=== PATIENT | male | born 1960 | race Caucasian/White ===

== ENCOUNTER → 2017-11-02 15:48 | Outpatient (CLI) | payer MEDICARE, MEDICAID, SELFPAY ==
[2017-11-02 17:09] LABS: Absolute Lymphocyte Count 2.42 X10^3/ul (0.83-4.51); Absolute Neutrophil Count 3.1 X10^3/uL (2.0-7.7); Basophil# 0.03 X10^3/uL; Basophil% 0.5 % (0-1); Eosinophil# 0.15 X10^3/uL; Eosinophils% 2.4 % (0-5); Hematocrit 43.3 % (40-54); Lymphocyte # 2.42 X10^3/ul (4.0); Lymphocyte % 38.8 % (19-41); Mean Corp Hgb Conc 34.6 g/gl (32-36); Mean Corpuscular Hgb 31.8 pg (27.0-32.0); Mean Corpuscular Volume 91.7 fL (80-94); Mean Platelet Vol. 10.6 fl (6.2-12.0); Monocyte# 0.53 X10^3/uL; Monocyte% 8.5 % (0-10); Neutrophil # 3.09 X10^3/uL (2.7-7.7); Neutrophil % 49.6 % (47-70); Platelet Count 219 K/mm3 (150-450); RBC Distribution Width CV 12.4 % (11.6-14.6); RBC Distribution Width SD 40.9 fl (35.1-43.9); Red Blood Count 4.72 M/mm3 (4.6-6.2); White Blood Count 6.2 K/mm3 (4.4-11.0)
[2017-11-02 17:10] LABS: POSITIVE COUNT NO; POSITIVE DIFFERENTIAL NO; POSITIVE MORPHOLOGY NO
[2017-11-02 17:15] LABS: Hemoglobin A1c 8.6 % (4.2-6.3)
[2017-11-02 17:18] LABS: ALB/GLOB Ratio 1.1 RATIO (0.9-2.4); AST(SGOT) 35 U/L (15-37); Alanine Aminotransfer ALT/SGPT 66 U/L (16-61); Albumin, Serum 4.2 g/dL (3.2-5.0); Alkaline Phosphatase 108 U/L (45-117); Anion Gap 11 (5-15); BUN 14 mg/dL (7-18); BUN/Creat Ratio 11.6 RATIO (10-20); Calcium,Total 9.6 mg/dL (8.5-10.1); Chloride 102 mmol/L (98-107); Creatinine, Serum 1.21 mg/dL (0.70-1.30); EST Glomerular Filtration Rate 65 mL/min (>60); Est Glom Filt Rate - Afr Amer 79 mL/min (>60); Globulin 3.8 g/dL (2.2-4.2); Glucose 145 mg/dL (74-106); Potassium 4.2 mmol/L (3.5-5.1); Sodium Level 138 mmol/L (136-145); Thyroid Stim Hormone (TSH) 2.49 uIU/mL (0.358-3.74)
[2017-11-02 17:39] LABS: BNP,B-Type NATRIURETIC PEPTIDE < 2.0 pg/mL (0-100)
[2017-11-02 19:38] LABS: Vitamin D,25 Hydroxy 28.5 ng/mL (29.95-100.01)
== END ==
PROVIDERS: Visit Provider Family Medicine
DX: E03.9 Hypothyroidism, unspecified (principal); E55.9 Vitamin D deficiency, unspecified; E11.9 Type 2 diabetes mellitus without complications; I10 Essential (primary) hypertension
CPT/HCPCS: 36415; 80053; 82306; 83036; 83880; 84439; 84443; 85025

== ENCOUNTER 2017-12-05 13:50 | Emergency (ER) | payer MEDICARE, MEDICAID, SELFPAY ==
[2017-12-05 13:50] VITALS: BP 196/102; PULSE 100; RESP 18; TEMP 36.5; O2SAT 96; BMI 40.7
[2017-12-05 14:33] LABS: Absolute Lymphocyte Count 1.88 X10^3/ul (0.83-4.51); Absolute Neutrophil Count 3.3 X10^3/uL (2.0-7.7); Basophil# 0.02 X10^3/uL; Basophil% 0.3 % (0-1); Eosinophil# 0.16 X10^3/uL; Eosinophils% 2.6 % (0-5); Hematocrit 41.8 % (40-54); Hemoglobin 14.3 g/dl (13.0-16.5); Lymphocyte # 1.88 X10^3/ul (4.0); Lymphocyte % 30.9 % (19-41); Mean Corp Hgb Conc 34.2 g/gl (32-36); Mean Corpuscular Hgb 31.9 pg (27.0-32.0); Mean Corpuscular Volume 93.3 fL (80-94); Mean Platelet Vol. 10.4 fl (6.2-12.0); Monocyte# 0.67 X10^3/uL; Neutrophil # 3.34 X10^3/uL (2.7-7.7); POSITIVE COUNT NO; POSITIVE DIFFERENTIAL NO; POSITIVE MORPHOLOGY NO; Platelet Count 183 K/mm3 (150-450); RBC Distribution Width CV 12.7 % (11.6-14.6); RBC Distribution Width SD 42.5 fl (35.1-43.9); Red Blood Count 4.48 M/mm3 (4.6-6.2); White Blood Count 6.1 K/mm3 (4.4-11.0)
--- NOTE | 2017-12-05 14:41 | RAD_ITS ---
STUDY: X-RAY - LEFT RADIUS AND ULNA REASON FOR EXAM: Male, 57 years old. Pain and swelling TECHNIQUE: 2 view(s) of the forearm. COMPARISON: None. FINDINGS: There is no demonstrated soft tissue swelling. Normal visualized radius. Normal visualized ulna. RAD/Forearm 2 Views IMPRESSION: Normal x-ray examination of the radius and ulna. Electronically Signed: Little Modi MD at 14:59 EDT Tel , Service support ,
[2017-12-05 14:56] LABS: Anion Gap 7 (5-15); BUN 13 mg/dL (7-18); Calcium,Total 9.2 mg/dL (8.5-10.1); Chloride 104 mmol/L (98-107); EST Glomerular Filtration Rate 60 mL/min (>60); Est Glom Filt Rate - Afr Amer 73 mL/min (>60); Estimated Creatinine Clearance 63.17 ml/min; Glucose 248 mg/dL (74-106); Potassium 4.4 mmol/L (3.5-5.1); Sodium Level 138 mmol/L (136-145)
--- NOTE | 2017-12-05 14:56 | ED.RN ---
LAB RESULTED LACTIC 2.9, PHYSICIAN NOTIFIED
[2017-12-05 14:57] LABS: Lactic Acid 2.9 mmol/L (0.4-2.0)
--- NOTE | 2017-12-05 15:44 | ED.DCSUM_ITS ---
- ER Visit Summary Date of Service: 12/05/17 Chief Complaint: Swelling to left forearm] History of Present Illness: The patient is a 57 M [emergency department with complaint of a swelling to the left forearm that he first noticed yesterday. 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 Today patient noticed increased redness and then streaking towards the elbow and down towards the wrist which concerned him so he comes in for evaluation. Patient not had any fever. Patient does state that he squeezed the lump earlier today and got small amount of purulent debris from it.] Physical Examination: [HEENT-PERRLA, EOMI. Cranial nerves II through XII grossly intact. TMs clear. Mucous membranes moist. No adenopathy. Cardiovascular-regular rate and rhythm without murmur or ectopy Lungs-clear to auscultation, chest wall stable without crepitus or subcu emphysema Abdomen-normoactive bowel sounds, soft, nontender, no rebound or rigidity, no peritoneal signs. Extremities-intact ?4, normal range of motion, normal pulses. Left forearm-mid dorsum of forearm there is a small area of soft tissue swelling measuring approximately a centimeter in diameter with some faint 3 cm of erythema. From this area there are 2 lymphangitic streaks 1 proximal towards elbow and one distal towards wrist. Patient has normal pulses. Patient has normal sensation. No significant edema to the forearm otherwise. Test Results: [X-ray of the left forearm obtained showed no foreign bodies. CBC with differential showed a normal white count of 6.1, hemoglobin 14, hematocrit 42, platelets 183. Chemistries unremarkable. Glucose was 248. Lactate was slightly elevated 2.9.] Emergency Department Course and Treatment: [Patient was medicated with with Unasyn 3 g IV.] Treatment Plan: [Discussed options for outpatient therapy versus admission for IV antibiotics. Given the patient has a normal white count is afebrile I feel he would be reasonable to start with outpatient treatment and patient actually would prefer to this plan. I do not feel patient is septic. Blood cultures were ordered and are pending. I will start patient on Bactrim and Keflex.] Disposition: [Discharged home in stable condition]. Patient advised to return if increased pain, redness, fever, or condition should worsen anyway. Patient to follow-up with primary care physician for wound check in 3-4 days. Impression: [Cellulitis left forearm with lymphangitis] This note was generated with [employer] dictation software. It may contain incorrect words, spelling, and punctuation that were not noted in review of the chart prior to signing ED Disposition - Plan for ED Patient: Chief Complaint: Cellulitis Referrals: Bernardo Mckee MD [Primary Care Provider] -
--- NOTE | 2017-12-05 15:45 | ED.DEP ---
ED Disposition - Plan for ED Patient: Chief Complaint: Cellulitis Instructions: ED Infec Skin Cellulitis Prescriptions: Cephalexin [Keflex] 500 mg PO Q6 #40 cap Smz/Tmp Ds [Bactrim Ds] 1 tab PO BID #20 tab Referrals: Bernardo Mckee MD [Primary Care Provider] - 3-5 Days
[2017-12-05 15:57] VITALS: BP 151/94; PULSE 88; RESP 16; O2SAT 97
--- NOTE | 2017-12-05 15:57 | ED.RN ---
pt given written and verbal discharge instructions and home going prescriptions. pt verbalizes understanding. pt iv d/c and covered with 2x2 gauze and paper tape. pt dresses self and ambulates out of dept with spouse.
[2017-12-05 18:24] LABS: Reflex Lactate? Y
== END 2017-12-05 15:59 | disposition home or self-care (01) ==
LOC: ED 14:26
PROVIDERS: Emergency Provider Emergency Medicine; Family Provider Family Medicine; PCP Family Medicine
DX: L03.114 Cellulitis of left upper limb (principal); I89.1 Lymphangitis; E11.9 Type 2 diabetes mellitus without complications; Z79.84 Long term (current) use of oral hypoglycemic drugs
CPT/HCPCS: 73090; 80048; 83605; 85025; 87040; 96365; 99283; J7030; J0295

== ENCOUNTER → 2018-02-04 08:48 | Outpatient (CLI) | payer MEDICARE, MEDICAID, SELFPAY ==
[2018-02-04 12:14] LABS: Absolute Lymphocyte Count 2.55 X10^3/ul (0.83-4.51); Basophil# 0.03 X10^3/uL; Basophil% 0.4 % (0-1); Eosinophil# 0.12 X10^3/uL; Eosinophils% 1.6 % (0-5); Hematocrit 44.5 % (40-54); Hemoglobin 15.1 g/dl (13.0-16.5); Lymphocyte # 2.55 X10^3/ul (4.0); Lymphocyte % 34.6 % (19-41); Mean Corp Hgb Conc 33.9 g/gl (32-36); Mean Corpuscular Hgb 32.1 pg (27.0-32.0); Mean Corpuscular Volume 94.5 fL (80-94); Mean Platelet Vol. 10.6 fl (6.2-12.0); Monocyte# 0.67 X10^3/uL; Monocyte% 9.1 % (0-10); Neutrophil # 3.98 X10^3/uL (2.7-7.7); Neutrophil % 54.2 % (47-70); Platelet Count 211 K/mm3 (150-450); RBC Distribution Width CV 12.9 % (11.6-14.6); RBC Distribution Width SD 43.3 fl (35.1-43.9); Red Blood Count 4.71 M/mm3 (4.6-6.2); White Blood Count 7.4 K/mm3 (4.4-11.0)
[2018-02-04 12:21] LABS: POSITIVE COUNT NO; POSITIVE DIFFERENTIAL NO; POSITIVE MORPHOLOGY NO
[2018-02-04 12:38] LABS: Anion Gap 7 (5-15); BUN 16 mg/dL (7-18); BUN/Creat Ratio 14.5 RATIO (10-20); Calcium,Total 9.4 mg/dL (8.5-10.1); Chloride 103 mmol/L (98-107); EST Glomerular Filtration Rate 73 mL/min (>60); Est Glom Filt Rate - Afr Amer 88 mL/min (>60); Glucose 134 mg/dL (74-106); Potassium 4.4 mmol/L (3.5-5.1); Sodium Level 138 mmol/L (136-145); T4 Free Direct 1.07 ng/dL (0.76-1.46); Thyroid Stim Hormone (TSH) 2.04 uIU/mL (0.358-3.74)
[2018-02-04 12:39] LABS: Vitamin D,25 Hydroxy 48.6 ng/mL (29.95-100.01)
--- OUTSIDE RECORDS SUMMARY | 2018-03-30 10:56 | XMS RPT_ITS ---
:1960 Author Organization OHIP Care Team Providers Name Role Phone Bernardo Mckee Attending Unavailable Bernardo Mckee Primary Care Unavailable Markell Lemon Attending Unavailable Bernardo Mckee Attending Unavailable Bernardo Mckee Primary Care Unavailable Bernardo Mckee Attending Unavailable Bernardo Mckee Referring Unavailable Bernardo Mckee Primary Care Unavailable PROBLEMS PROBLEMS DATE TYPE CONDITION / CODE ATTENDING STATUS SOURCE 02/04/2018 Unknown E55.9 - Vitamin D Bernardo Mckee Active [place] deficiency, Community unspecified / Hospital E55.9(ICD-10) Repository 02/04/2018 Unknown I10 - Essential Bernardo Mckee Active [place] (primary) Community hypertension / Hospital I10(ICD-10) Repository 02/04/2018 Unknown E11.9 - Type 2 Bernardo Mckee Active [place] diabetes mellitus [facility] without Hospital complications / Repository E11.9(ICD-10) 02/04/2018 Unknown R06.02 - Shortness Bernardo Mckee Active [place] of breath / Community R06.02(ICD-10) Hospital Repository 11/02/2017 Unknown E03.9 - Bernardo Mckee Active [place] Hypothyroidism, Community unspecified / Hospital E03.9(ICD-10) Repository PROCEDURES PROCEDURES No Procedure Records FoundRESULTS RESULTS CHEST PA AND LATERAL Observed: 02/04/2018 Status: F Source: [place] 9:11 AM [facility] REPOSITORY [facility] Imaging Services [address] [place] [address] Chest PA and Lateral MR#: [id number] Acct: [id number] Name: CHITO MACHUCA Rep #: [id number] : 1960 M 57 From: Mau Fay MD PCP: Bernardo Mckee MD Status: REG CLI Study: Chest PA and Lateral Date of Exam: 02/04/18 Exam# [id number] Ordering Dr: Bernardo Mckee MD STUDY: X-RAY CHEST REASON FOR EXAM: Male, 57 years old. Shortness of breath TECHNIQUE: PA and lateral views of the chest. COMPARISON: None. FINDINGS: The lungs are clear and expanded. There is a focus of pleural thickening of the lateral right mid hemithorax. Normal size heart. Normal mediastinum and fausto. Normal visualized pulmonary arteries. Normal visualized aortic arch and descending thoracic aorta. There are degenerative changes of the thoracic spine. There is a fusion plate overlying the lower cervical region. There is a small metallic-appearing foreign body in the soft tissues of the anterior left chest wall. RAD/Chest PA and Lateral IMPRESSION: Mild pleural thickening of the mid lateral right hemithorax. Metallic-appearing foreign body of the anterior left chest wall. Fusion plate overlying the lower cervical region. Degenerative changes of the thoracic spine. Electronically Signed: Mau Fay MD at 21:30 EST , Service support , CC: Bernardo Mckee MD Hosiery Mater: Signed CBC W/DIFF, AUTOMATED Collected: 02/04/2018 Status: F Source: [place] 8:51 AM [facility] REPOSITORY TYPE CODE TESTS RESULT OUT OF RANGE REFERENCE UNITS LAB L100.1000 4.4-11.0 K/mm3 Normal WBC 7.4 LAB L100.1200 4.6-6.2 M/mm3 Normal RBC 4.71 LAB L100.1300 13.0-16.5 g/dl Normal HGB 15.1 LAB L100.1400 40-54 % Normal HCT 44.5 LAB L100.1500 80-94 fL High MCV 94.5 LAB L100.1600 27.0-32.0 pg High MCH 32.1 LAB L100.1700 32-36 g/gl Normal MCHC 33.9 LAB L100.1810 11.6-14.6 % Normal RDW CV 12.9 LAB L100.1820 35.1-43.9 fl Normal RDW SD 43.3 LAB L100.1900 150-450 K/mm3 Normal PLT 211 LAB L100.2000 6.2-12.0 fl Normal MPV 10.6 LAB L100.2100 47-70 % Normal NEUT% 54.2 LAB L100.2200 19-41 % Normal LY% 34.6 LAB L100.2300 0-10 % Normal MONO% 9.1 LAB L100.2400 0-5 % Normal EO% 1.6 LAB L100.2500 0-1 % Normal BASO% 0.4 LAB L100.2550 0.0-0.9 % Normal IM GRAN % 0.100 Result Comment: IG% - Immature Granulocytes (promyelocytes, myelocytes and metamyelocytes) > 1% indicates that a LEFT SHIFT is Present. LAB L100.2620 2.0-7.7 X10 3/uL Normal Absolute Neut 4.0 LAB L100.2720 0.83-4.51 X10 3/ul Normal Absolute Lymph 2.55 Performed By: #### L100.0100 #### [facility] [address] [place], [address] BASIC METABOLIC Collected: 02/04/2018 Status: F Source: [place] PROFILE (BMP) 8:51 AM [facility] REPOSITORY TYPE CODE TESTS RESULT OUT OF RANGE REFERENCE UNITS LAB L501.0100 74-106 mg/dL High GLU 134 Result Comment: Fasting Glucose result greater than or equal to 126 mg/dL suggests DIABETES MELLITUS per A.D.A. criteria. Please note revised GLUCOSE reference range effective 2017. LAB L501.1000 7-18 mg/dL Normal BUN 16 LAB L501.1100 0.70-1.30 mg/dL Normal CREAT,SERUM 1.10 Result Comment: The validity of the calculated GFR AND GFRAA in patients over 70 years has not been determined. Clinical correlation is essential. LAB L501.1110 >60 mL/min Normal EST GFR 73 Result Comment: Non- GFR Calc LAB L501.1115 >60 mL/min Normal EST GFR - AA 88 Result Comment: GFR Calc LAB L501.1300 10-20 RATIO Normal BUN/CRE 14.5 LAB L501.2200 8.5-10.1 mg/dL CA Normal 9.4 LAB L501.5300 136-145 mmol/L NA Normal 138 LAB L501.5600 3.5-5.1 mmol/L K Normal 4.4 LAB L501.5900 98-107 mmol/L CL Normal 103 LAB L501.6100 21.0-32.0 mmol/L Normal CO2 28.0 LAB L501.6200 5-15 Normal GAP 7 Performed By: #### L500.2500, L501.9520, L506.0400 #### [facility] [address] [place], [address] THYROID STIM HORMONE Collected: 02/04/2018 Status: F Source: [place] (TSH) 8:51 AM [facility] REPOSITORY TYPE CODE TESTS RESULT OUT OF RANGE REFERENCE UNITS LAB L501.9520 0.358-3.74 uIU/mL Normal TSH 2.04 Performed By: #### L500.2500, L501.9520, L506.0400 #### [facility] [address] [place], [address] T4 FREE DIRECT Collected: 02/04/2018 Status: F Source: [place] 8:51 AM [facility] REPOSITORY TYPE CODE TESTS RESULT OUT OF RANGE REFERENCE UNITS LAB L506.0400 0.76-1.46 ng/dL Normal T4 FREE 1.07 DIRECT Performed By: #### L500.2500, L501.9520, L506.0400 #### [facility] [address] [place], [address] VITAMIN D,25 HYDROXY Collected: 02/04/2018 Status: F Source: [place] 8:51 AM [facility] REPOSITORY TYPE CODE TESTS RESULT OUT OF RANGE REFERENCE UNITS LAB L506.1000 29.95-100.01 ng/mL Normal Vitamin D 48.6 25-OH Result Comment: Vitamin D 25(OH) Status Range Deficiency <20 ng/mL (50nmol/L) Insuffciency 20 - 30 ng/mL (50 - 75 nmol/L) Sufficiency 30 - 100 ng/mL (75 - 250 nmol/L) Toxicity >100 ng/mL (>250 nmol/L) Performed By: #### L506.1000 #### [facility] [address] [place] [place], [address] DISCHARGE INSTRUCTION Observed: 12/05/2017 Status: F Source: [place] 3:46 PM [facility] REPOSITORY [facility] Medical Records Department [address] [place] [address] Discharge Instruction 12/05/17 1545 MR#: [id number] Acct: [id number] Name: CHITO MACHUCA Rep #: [id number] : 1960 57 From: Markell Lemon DO PCP: Bernardo Mckee MD Status: REG ER ED Disposition - Plan for ED Patient: Chief Complaint: Cellulitis Instructions: ED Infec Skin Cellulitis Prescriptions: Cephalexin [Keflex] 500 mg PO Q6 #40 cap Smz/Tmp Ds [Bactrim Ds] 1 tab PO BID #20 tab Referrals: Bernardo Mckee MD [Primary Care Provider] - 3-5 Days What to do if you have Problems For any increased pain, shortness of breath, bleeding, nausea or vomiting, chest pain, or any unexpected problems, contact your Primary Care Provider. Call [facility] ([phone]) or report to the closest Emergency Room. Call 911 if necessary. 12/05/17 1547 <Electronically signed by Markell Lemon DO> Date Markell Lemon DO Cosigner Signature (If Indicated): Date CC: Bernardo Mckee MD EMERGENCY DEPARTMENT Observed: 12/05/2017 Status: F Source: REBECCA SUMMARY 3:44 PM [facility] REPOSITORY [facility] Medical Records Department [address] [place] [address] Emergency Department Summary 12/05/17 1541 MR#: [id number] Acct: [id number] Name: CHITO MACHUCA Rep #: [id number] : 1960 57 From: Markell Lemon DO PCP: Bernardo Mckee MD Status: REG ER - ER Visit Summary Date of Service: 12/05/17 Chief Complaint: Swelling to left forearm] History of Present Illness: The patient is a 57 M [emergency department with complaint of a swelling to the left forearm that he first noticed yesterday. 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 Today patient noticed increased redness and then streaking towards the elbow and down towards the wrist which concerned him so he comes in for evaluation. Patient not had any fever. Patient does state that he squeezed the lump earlier today and got small amount of purulent debris from it.] Physical Examination: [HEENT-PERRLA, EOMI. Cranial nerves II through XII grossly intact. TMs clear. Mucous membranes moist. No adenopathy. Cardiovascular-regular rate and rhythm without murmur or ectopy Lungs-clear to auscultation, chest wall stable without crepitus or subcu emphysema Abdomen-normoactive bowel sounds, soft, nontender, no rebound or rigidity, no peritoneal signs. Extremities-intact 4, normal range of motion, normal pulses. Left forearm-mid dorsum of forearm there is a small area of soft tissue swelling measuring approximately a centimeter in diameter with some faint 3 cm of erythema. From this area there are 2 lymphangitic streaks 1 proximal towards elbow and one distal towards wrist. Patient has normal pulses. Patient has normal sensation. No significant edema to the forearm otherwise. Test Results: [X-ray of the left forearm obtained showed no foreign bodies. CBC with differential showed a normal white count of 6.1, hemoglobin 14, hematocrit 42, platelets 183. Chemistries unremarkable. Glucose was 248. Lactate was slightly elevated 2.9.] Emergency Department Course and Treatment: [Patient was medicated with with Unasyn 3 g IV.] Treatment Plan: [Discussed options for outpatient therapy versus admission for IV antibiotics. Given the patient has a normal white count is afebrile I feel he would be reasonable to start with outpatient treatment and patient actually would prefer to this plan. I do not feel patient is septic. Blood cultures were ordered and are pending. I will start patient on Bactrim and Keflex.] Disposition: [Discharged home in stable condition]. Patient advised to return if increased pain, redness, fever, or condition should worsen anyway. Patient to follow-up with primary care physician for wound check in 3-4 days. Impression: [Cellulitis left forearm with lymphangitis] This note was generated with mobiliThinkation software. It may contain incorrect words, spelling, and punctuation that were not noted in review of the chart prior to signing ED Disposition - Plan for ED Patient: Chief Complaint: Cellulitis Referrals: Bernardo Mckee MD [Primary Care Provider] - What to do if you have Problems For any increased pain, shortness of breath, bleeding, nausea or vomiting, chest pain, or any unexpected problems, contact your Primary Care Provider. Call [facility] ([phone]) or report to the closest Emergency Room. Call 911 if necessary. 12/05/17 1544 <Electronically signed by Markell Lemon DO> Date Markell Lemon DO Cosigner Signature (If Indicated): Date CC: Bernardo Mckee MD Observed: 12/05/2017 Status: F Source: [place] CULTURE, BLOOD (WB) 2:31 PM [facility] REPOSITORY BC No growth in 5 days. Performed By: #### M200.1000 #### [facility] [address] [place], [address] CBC W/DIFF, AUTOMATED Collected: 12/05/2017 Status: F Source: [place] 2:20 PM [facility] REPOSITORY TYPE CODE TESTS RESULT OUT OF RANGE REFERENCE UNITS LAB L100.1000 4.4-11.0 K/mm3 Normal WBC 6.1 LAB L100.1200 4.6-6.2 M/mm3 Low RBC 4.48 LAB L100.1300 13.0-16.5 g/dl Normal HGB 14.3 LAB L100.1400 40-54 % Normal HCT 41.8 LAB L100.1500 80-94 fL Normal MCV 93.3 LAB L100.1600 27.0-32.0 pg Normal MCH 31.9 LAB L100.1700 32-36 g/gl Normal MCHC 34.2 LAB L100.1810 11.6-14.6 % Normal RDW CV 12.7 LAB L100.1820 35.1-43.9 fl Normal RDW SD 42.5 LAB L100.1900 150-450 K/mm3 Normal PLT 183 LAB L100.2000 6.2-12.0 fl Normal MPV 10.4 LAB L100.2100 47-70 % Normal NEUT% 55.0 LAB L100.2200 19-41 % Normal LY% 30.9 LAB L100.2300 0-10 % High MONO% 11.0 LAB L100.2400 0-5 % Normal EO% 2.6 LAB L100.2500 0-1 % Normal BASO% 0.3 LAB L100.2550 0.0-0.9 % Normal IM GRAN % 0.200 Result Comment: IG% - Immature Granulocytes (promyelocytes, myelocytes and metamyelocytes) > 1% indicates that a LEFT SHIFT is Present. LAB L100.2620 2.0-7.7 X10 3/uL Normal Absolute Neut 3.3 LAB L100.2720 0.83-4.51 X10 3/ul Normal Absolute Lymph 1.88 Performed By: #### L100.0100 #### [facility] [address] [place], [place], [address] BASIC METABOLIC Collected: 12/05/2017 Status: F Source: [place] PROFILE (BMP) [facility] TYPE CODE TESTS RESULT OUT OF RANGE REFERENCE UNITS LAB L501.0100 74-106 mg/dL High GLU 248 Result Comment: Glucose result greater than or equal to 200 mg/dL suggests DIABETES MELLITUS per A.D.A. criteria. Please note revised GLUCOSE reference range effective 2017. LAB L501.1000 7-18 mg/dL Normal BUN 13 LAB L501.1100 0.70-1.30 mg/dL Normal CREAT,SERUM 1.30 Result Comment: The validity of the calculated GFR AND GFRAA in patients over 70 years has not been determined. Clinical correlation is essential. LAB L501.1110 >60 mL/min Normal EST GFR 60 Result Comment: Non- GFR Calc LAB L501.1115 >60 mL/min Normal EST GFR - AA 73 Result Comment: GFR Calc LAB L501.1255 ml/min Normal Estimated CRCL 63.17 LAB L501.1300 10-20 RATIO Normal BUN/CRE 10.0 LAB L501.2200 8.5-10 mg/dL Normal .1 CA 9.2 LAB L501.5300 136-14 mmol/L Normal 5 NA 138 LAB L501.5600 3.5-5. mmol/L Normal 1 K 4.4 Result Comment: Moderate Hemolysis, Result may be falsely increased. LAB L501.5900 98-107 mmol/L Normal CL 104 LAB L501.6100 21.0-32.0 mmol/L Normal CO2 27.0 LAB L501.6200 5-15 Normal 7 GAP Performed By: #### L500.2500 #### [facility] [address] [facility] [place], [place], [address] LACTIC ACID Collected: 12/05/2017 Status: F Source: REBECCA 2:20 PM [facility] REPOSITORY Order Comment: Yes/No query for Sepsis Lactate Rule Y TYPE CODE TESTS RESULT OUT OF REFERENCE UNITS RANGE LAB L503.6005 0.4-2.0 mmol/L High LACTIC ACID 2.9 Result Comment: Critical Result(s) Called at: 14:57:05 12/05/2017 by: Miesha Villegas Performed By: #### L503.6005 #### [facility] [address] [facility] [place], [place], [address] Observed: 12/05/2017 Status: F Source: [place] CULTURE, BLOOD (WB) 2:20 PM [facility] REPOSITORY BC No growth in 5 days. Performed By: #### M200.1000 #### [facility] [address] [place], [address] FOREARM 2 VIEWS Observed: 12/05/2017 Status: F Source: [place] 2:03 PM [facility] REPOSITORY [facility] Imaging Services [address] [place] [address] Forearm 2 Views MR#: [id number] Acct: [id number] Name: CHITO MACHUCA Rep #: [id number] : 1960 57 From: Little Modi MD PCP: Bernardo Mckee MD Status: REG ER Study: Forearm 2 Views Date of Exam: 12/05/17 Exam# [id number] Ordering Dr: Markell Lemon DO STUDY: X-RAY - LEFT RADIUS AND ULNA REASON FOR EXAM: Male, 57 years old. Pain and swelling TECHNIQUE: 2 view(s) of the forearm. COMPARISON: None. FINDINGS: There is no demonstrated soft tissue swelling. Normal visualized radius. Normal visualized ulna. RAD/Forearm 2 Views IMPRESSION: Normal x-ray examination of the radius and ulna. Electronically Signed: Little Modi MD at 14:59 EDT Tel , Service support , CC: Markell Lemon DO; Bernardo Mckee MD Hosiery Mater: Signed CBC W/DIFF, AUTOMATED Collected: 11/02/2017 Status: F Source: [place] 3:51 PM [facility] REPOSITORY TYPE CODE TESTS RESULT OUT OF RANGE REFERENCE UNITS LAB L100.1000 4.4-11.0 K/mm3 Normal WBC 6.2 LAB L100.1200 4.6-6.2 M/mm3 Normal RBC 4.72 LAB L100.1300 13.0-16.5 g/dl Normal HGB 15.0 LAB L100.1400 40-54 % Normal HCT 43.3 LAB L100.1500 80-94 fL Normal MCV 91.7 LAB L100.1600 27.0-32.0 pg Normal MCH 31.8 LAB L100.1700 32-36 g/gl Normal MCHC 34.6 LAB L100.1810 11.6-14.6 % Normal RDW CV 12.4 LAB L100.1820 35.1-43.9 fl Normal RDW SD 40.9 LAB L100.1900 150-450 K/mm3 Normal PLT 219 LAB L100.2000 6.2-12.0 fl Normal MPV 10.6 LAB L100.2100 47-70 % Normal NEUT% 49.6 LAB L100.2200 19-41 % Normal LY% 38.8 LAB L100.2300 0-10 % Normal MONO% 8.5 LAB L100.2400 0-5 % Normal EO% 2.4 LAB L100.2500 0-1 % Normal BASO% 0.5 LAB L100.2550 0.0-0.9 % Normal IM GRAN % 0.200 Result Comment: IG% - Immature Granulocytes (promyelocytes, myelocytes and metamyelocytes) > 1% indicates that a LEFT SHIFT is Present. LAB L100.2620 2.0-7.7 X10 3/uL Normal Absolute Neut 3.1 LAB L100.2720 0.83-4.51 X10 3/ul Normal Absolute Lymph 2.42 Performed By: #### L100.0100 #### [facility] [address] [facility] [place], [place], [address] HEMOGLOBIN A1C Collected: 11/02/2017 Status: F Source: REBECCA 3:51 PM [facility] REPOSITORY TYPE CODE TESTS RESULT OUT OF RANGE REFERENCE UNITS LAB L501.9985 4.2-6.3 % High HGB A1C 8.6 Performed By: #### L501.9985 #### [facility] [address] [facility] [place], [place], [address] COMPREHENSIVE METABOLIC Collected: 11/02/2017 Status: F Source: [place] LOREDO 3:51 PM [facility] REPOSITORY TYPE CODE TESTS RESULT OUT OF RANGE REFERENCE UNITS LAB L501.0100 74-106 mg/dL High GLU 145 Result Comment: Fasting Glucose result greater than or equal to 126 mg/dL suggests DIABETES MELLITUS per A.D.A. criteria. Please note revised GLUCOSE reference range effective 2017. LAB L501.1000 7-18 mg/dL Normal BUN 14 LAB L501.1100 0.70-1.30 mg/dL Normal CREAT,SERUM 1.21 Result Comment: The validity of the calculated GFR AND GFRAA in patients over 70 years has not been determined. Clinical correlation is essential. LAB L501.1110 >60 mL/min Normal EST GFR 65 Result Comment: Non- GFR Calc LAB L501.1115 >60 mL/min Normal EST GFR - AA 79 Result Comment: GFR Calc LAB L501.1300 10-20 RATIO Normal BUN/CRE 11.6 LAB L501.1500 6.4-8.2 g/dL T Normal PROT 8.0 LAB L501.1800 3.2-5.0 g/dL Normal ALB 4.2 LAB L501.1950 2.2-4.2 g/dL Normal GLOB 3.8 LAB L501.2000 0.9-2.4 RATIO Normal A/G 1.1 LAB L501.2200 8.5-10.1 mg/dL CA Normal 9.6 LAB L501.4100 15-37 U/L Normal AST 35 LAB L501.4305 45-117 U/L Normal ALK P 108 LAB L501.4405 16-61 U/L High ALT 66 LAB L501.4600 0.20-1.00 mg/dL T Normal BILI 0.50 LAB L501.5300 136-145 mmol/L NA Normal 138 LAB L501.5600 3.5-5.1 mmol/L K Normal 4.2 LAB L501.5900 98-107 mmol/L CL Normal 102 LAB L501.6100 21.0-32.0 mmol/L Normal CO2 25.0 LAB L501.6200 5-15 Normal GAP 11 Performed By: #### L500.4050, L501.9520, L506.0400 #### [facility] [address] [place], [address] THYROID STIM HORMONE Collected: 11/02/2017 Status: F Source: [place] (TSH) 3:51 PM [facility] REPOSITORY TYPE CODE TESTS RESULT OUT OF RANGE REFERENCE UNITS LAB L501.9520 0.358-3.74 uIU/mL Normal TSH 2.49 Performed By: #### L500.4050, L501.9520, L506.0400 #### [facility] [address] [place], [address] T4 FREE DIRECT Collected: 11/02/2017 Status: F Source: ANDREIA 3:51 PM [facility] REPOSITORY TYPE CODE TESTS RESULT OUT OF RANGE REFERENCE UNITS LAB L506.0400 0.76-1.46 ng/dL Normal T4 FREE 1.00 DIRECT Performed By: #### L500.4050, L501.9520, L506.0400 #### [facility] [place], [address] BNP,B-TYPE NATRIURETIC Collected: 11/02/2017 Status: F Source: [place] PEPTIDE 3:51 PM [facility] REPOSITORY TYPE CODE TESTS RESULT OUT OF RANGE REFERENCE UNITS LAB L503.6620 0-100 pg/mL Normal B-TYPE < 2.0 [place]ALLIE PEP Performed By: #### L503.6620 #### [facility] [place], [address] VITAMIN D,25 HYDROXY Collected: 11/02/2017 Status: F Source: [place] 3:51 PM [facility] REPOSITORY TYPE CODE TESTS RESULT OUT OF REFERENCE UNITS RANGE LAB L506.1000 29.95-100.01 ng/mL Low Vitamin D 28.5 25-OH Result Comment: Vitamin D 25(OH) Status Range Deficiency <20 ng/mL (50nmol/L) Insuffciency 20 - 30 ng/mL (50 - 75 nmol/L) Sufficiency 30 - 100 ng/mL (75 - 250 nmol/L) Toxicity >100 ng/mL (>250 nmol/L) Performed By: #### L506.1000 #### [facility] [address] [place], [address] ALLERGIES ALLERGIES DATE TYPE / CODE NAME / CODE REACTION SEVERITY SOURCE 12/05/2017 Drug No Known Unknown [facility] Allergy/4160 Allergies/F00 [facility] [address](SNOMED 1992686(RXNOR Repository CT) M) ENCOUNTERS ENCOUNTERS ADMIT/DISCHARGE ACCOUNT ADMITTING ENCOUNTER LOCATION SOURCE NUMBER CLASS 02/04/2018 [id number] Ambulatory [place] [address] [facility] ing:HPRAD Repository 02/04/2018 [id number] Amb[place] [address] [facility] ing:BFHLAB Repository 12/05/2017/ [id number] Emergency [place] [address] [facility] ing:ED Repository 11/02/2017 [id number] Ambulatory [place] [address] [facility] ing:BFHLAB Repository PAYERS PAYERS ENCOUNTER GUARANTOR PAYER SUBSCRIBER SOURCE 02/04/2018 CIHTO [id number] Primary CHITO [address] [place] Insurance:MEDICARE MICKLEDOB: [address] [id number], [place] [address]Las: Number: Repository [id number] (HP) Date:2018-02-04 02/04/2018 Secondary CHITO S [place] Insurance:MEDICAIDPol [facility] ic Number: [id number] Hospital [id number] Repository Date:2018-02-04 02/04/2018 Tertiary NOT GIVENUNK [place] Insurance:SELF PAY [facility] Number: Effective Repository Date:2018-02-04 02/04/2018 CHITO Shi [id number] Primary CHITO S [place] TR Insurance:MEDICARE MICKLEDOB: [address] [id number], [place] [address]Sow: Number: Repository [id number] (HP) Date:2018-02-04 02/04/2018 Secondary CHITO S [place] Insurance:MEDICAIDPol [facility] ic Number: [id number] Hospital [id number] Repository Date:2018-02-04 02/04/2018 Tertiary NOT GIVENUNK [place] Insurance:SELF PAY [facility] Number: Effective Repository Date:2018-02-04 12/05/2017 CHITO Shi [id number] Primary CHITO [address] Insurance:MEDICARE MICKLEDOB: Community [address] [id number] Hospital , [place] [address]Oja: Number: Repository [id number] (HP) Date:2017-12-05 12/05/2017 Secondary CHITO S [place] Insurance:MEDICAIDPol MICKLEDOB: Community ic Number: [id number] Hospital [id number] Repository Date:2017-12-05 12/05/2017 Tertiary NOT GIVENUNK [place] Insurance:SELF PAY [facility] Number: Effective Repository Date:2017-12-05 11/02/2017 Chito S [id number] Primary Chito [address] Insurance:MEDICARE MickleDOB: [address] [id number] Hospital , [place] [address]Dud: Number: Repository [id number] (HP) Date:2017-11-02 11/02/2017 Secondary Chito S [place] Insurance:MEDICAIDPol MickleDOB: Community icy Number: [id number] Hospital [id number] Repository Date:2017-11-02 11/02/2017 Tertiary NOT GIVENUNK [place] Insurance:SELF PAY [facility] Number: Effective Repository Date:2017-11-02
== END ==
PROVIDERS: Family Provider Family Medicine; PCP Family Medicine; Visit Provider Family Medicine
DX: E11.9 Type 2 diabetes mellitus without complications (principal); I10 Essential (primary) hypertension; R06.02 Shortness of breath; E55.9 Vitamin D deficiency, unspecified
CPT/HCPCS: 36415; 80048; 82306; 84439; 84443; 85025

== ENCOUNTER → 2018-02-04 09:07 | Outpatient (CLI) | payer MEDICARE, MEDICAID, SELFPAY ==
--- NOTE | 2018-02-04 09:14 | RAD_ITS ---
STUDY: X-RAY CHEST REASON FOR EXAM: Male, 57 years old. Shortness of breath TECHNIQUE: PA and lateral views of the chest. COMPARISON: None. FINDINGS: The lungs are clear and expanded. There is a focus of pleural thickening of the lateral right mid hemithorax. Normal size heart. Normal mediastinum and fausto. Normal visualized pulmonary arteries. Normal visualized aortic arch and descending thoracic aorta. There are degenerative changes of the thoracic spine. There is a fusion plate overlying the lower cervical region. There is a small metallic-appearing foreign body in the soft tissues of the anterior left chest wall. RAD/Chest PA and Lateral IMPRESSION: Mild pleural thickening of the mid lateral right hemithorax. Metallic-appearing foreign body of the anterior left chest wall. Fusion plate overlying the lower cervical region. Degenerative changes of the thoracic spine. Electronically Signed: Mau Fay MD at 21:30 EST , Service support ,
--- OUTSIDE RECORDS SUMMARY | 2018-03-30 12:00 | XMS RPT_ITS ---
[...] 2 Bernardo Mckee Active [place] diabetes mellitus [facility] Hospital complications / Repository E11.9(ICD-10) 02/04/2018 Unknown R06.02 - Shortness Bernardo Mckee Active [place] of breath / Community R06.02(ICD-10) Hospital Repository 11/02/2017 Unknown E03.9 - Bernardo Mckee Active [place] Hypothyroidism, Community unspecified / Hospital E03.9(ICD-10) Repository PROCEDURES PROCEDURES No Procedure Records FoundRESULTS RESULTS CHEST PA AND LATERAL Observed: 02/04/2018 Status: F Source: [place] 9:11 AM [facility] REPOSITORY [facility] Imaging Services [address] [place] [address] Chest PA and Lateral MR#: [id number] Acct: [id number] Name: CHITO MACHUCA Rep #: [id number] : 1960 M 57 From: Mau Fay MD PCP: Bernardo Mckee MD Status: REG CLI Study: Chest PA and Lateral Date of Exam: 02/04/18 Exam# [id number] Ordering Dr: Bernardo Mckee MD STUDY: X-RAY [...] Service support , CC: Bernardo Mckee MD Fruit Distributor: Signed CBC W/DIFF, AUTOMATED Collected: 02/04/2018 Status: F Source: [place] 8:[address] [facility] REPOSITORY TYPE CODE TESTS RESULT OUT OF [...] Lymph 2.55 Performed By: #### L100.0100 #### [facility] [address] [place], [address] BASIC METABOLIC Collected: 02/04/2018 Status: F Source: [place] PROFILE (BMP) 8:[address] [facility] REPOSITORY TYPE CODE TESTS RESULT OUT OF [...] Performed By: #### L500.2500, L501.9520, L506.0400 #### [facility] [address] [place], [address] THYROID STIM HORMONE Collected: 02/04/2018 Status: F Source: [place] (TSH) 8:[address] [facility] REPOSITORY TYPE CODE TESTS RESULT OUT OF RANGE REFERENCE UNITS LAB L501.9520 0.358-3.74 uIU/mL Normal TSH 2.04 Performed By: #### L500.2500, L501.9520, L506.0400 #### [facility] [address] [place], [address] T4 FREE DIRECT Collected: 02/04/2018 Status: F Source: [place] 8:[address] [facility] REPOSITORY TYPE CODE TESTS RESULT OUT OF RANGE REFERENCE UNITS LAB L506.0400 0.76-1.46 ng/dL Normal T4 FREE 1.07 DIRECT Performed By: #### L500.2500, L501.9520, L506.0400 #### [facility] [address] [place], [address] VITAMIN D,25 HYDROXY Collected: 02/04/2018 Status: F Source: [place] 8:[address] [facility] REPOSITORY TYPE CODE TESTS RESULT OUT OF RANGE REFERENCE UNITS LAB L506.1000 29.95-100.01 ng/mL Normal Vitamin D 48.6 25-OH Result Comment: Vitamin D 25(OH) Status Range Deficiency <20 ng/mL (50nmol/L) Insuffciency 20 - 30 ng/mL (50 - 75 nmol/L) Sufficiency 30 - 100 ng/mL (75 - 250 nmol/L) Toxicity >100 ng/mL (>250 nmol/L) Performed By: #### L506.1000 #### [facility] [address], [address] DISCHARGE INSTRUCTION Observed: 12/05/2017 Status: F Source: [place] 3:[address] [facility] REPOSITORY [facility] Medical Records Department [address] [place] [address] Discharge Instruction 12/05/17 1545 MR#: [id number] Acct: [id number] Name: CHITO MACHUCA Rep #: [id number] : 1960 57 From: Markell Lemon DO [...] your Primary Care Provider. Call [facility] ([phone]) or report to the closest Emergency Room. Call 911 if necessary. 12/05/17 1544 <Electronically signed by Markell Lemon DO> Date Markell Lemon DO Cosigner Signature (If Indicated): Date CC: Bernardo Mckee MD EMERGENCY DEPARTMENT Observed: 12/05/2017 Status: F Source: [place] SUMMARY 3:[address] [facility] REPOSITORY [facility] Medical Records Department [address] [place] [address] Emergency Department Summary 12/05/17 1541 MR#: [id number] Acct: [id number] Name: CHITO MACHUCA Rep #: [id number] : 1960 57 From: Markell Lemon DO [...] with lymphangitis] This note was generated with Hundoation software. It may contain incorrect words, spelling, [...] your Primary Care Provider. Call [facility] ([phone]) or report to the closest Emergency Room. Call 911 if necessary. 12/05/17 1544 <Electronically signed by Markell Lemon DO> Date Markell Lemon DO Cosigner Signature (If Indicated): Date CC: Bernardo Mckee MD Observed: 12/05/2017 Status: F Source: [place] CULTURE, BLOOD (WB) 2:[address] [facility] REPOSITORY BC No growth in 5 days. Performed By: #### M200.1000 #### [facility] [address], [address] CBC W/DIFF, AUTOMATED Collected: 12/05/2017 Status: F Source: [place] 2:[address] [facility] REPOSITORY TYPE CODE TESTS RESULT OUT OF [...] Lymph 1.88 Performed By: #### L100.0100 #### [facility] [address] [place], [place], [address] BASIC METABOLIC Collected: 12/05/2017 Status: F Source: [...] 7 GAP Performed By: #### L500.2500 #### [facility] [address] [facility] [place], [place], [address] LACTIC ACID Collected: 12/05/2017 Status: F Source: [place] 2:[address] [facility] REPOSITORY Order Comment: Yes/No query for Sepsis Lactate Rule Y TYPE CODE TESTS RESULT OUT OF REFERENCE UNITS RANGE LAB L503.6005 0.4-2.0 mmol/L High LACTIC ACID 2.9 Result Comment: Critical Result(s) Called at: 14:57:05 12/05/2017 by: Miesha Villegas Performed By: #### L503.6005 #### [facility] [address] [facility] [place], [place], [address] Observed: 12/05/2017 Status: F Source: [place] CULTURE, BLOOD (WB) 2:[address] [facility] REPOSITORY BC No growth in 5 days. Performed By: #### M200.1000 #### [facility] [address], [address] FOREARM 2 VIEWS Observed: 12/05/2017 Status: F Source: [place] 2:03 PM [facility] HOSPITAL REPOSITORY [facility] Imaging Services [address] [place] [address] Forearm 2 Views MR#: [id number] Acct: [id number] Name: CHTIO MACHUCA Rep #: [id number] : 1960 57 From: Little Modi MD PCP: Bernardo Mckee MD Status: REG ER Study: Forearm 2 Views Date of Exam: 12/05/17 Exam# [id number] Ordering Dr: Markell Lemon DO STUDY: X-RAY [...] CC: Markell Lemon DO; Bernardo Mckee MD Fruit Distributor: Signed CBC W/DIFF, AUTOMATED Collected: 11/02/2017 Status: F Source: [place] 3:[address] [facility] REPOSITORY TYPE CODE TESTS RESULT OUT OF [...] Lymph 2.42 Performed By: #### L100.0100 #### [facility] [address] [facility] [place], [place], [address] HEMOGLOBIN A1C Collected: 11/02/2017 Status: F Source: [place] 3:[address] [facility] REPOSITORY TYPE CODE TESTS RESULT OUT OF RANGE REFERENCE UNITS LAB L501.9985 4.2-6.3 % High HGB A1C 8.6 Performed By: #### L501.9985 #### [facility] [address] [facility] [place], [place], [address] COMPREHENSIVE METABOLIC Collected: 11/02/2017 Status: F Source: [place] L[place]O 3:[address] [facility] REPOSITORY TYPE CODE TESTS RESULT OUT OF [...] Performed By: #### L500.4050, L501.9520, L506.0400 #### [facility] [address] [place], [address] THYROID STIM HORMONE Collected: 11/02/2017 Status: F Source: [place] (TSH) 3:[address] [facility] REPOSITORY TYPE CODE TESTS RESULT OUT OF RANGE REFERENCE UNITS LAB L501.9520 0.358-3.74 uIU/mL Normal TSH 2.49 Performed By: #### L500.4050, L501.9520, L506.0400 #### [facility] [address] [place], [address] T4 FREE DIRECT Collected: 11/02/2017 Status: F Source: [place] 3:[address] [facility] REPOSITORY TYPE CODE TESTS RESULT OUT OF RANGE REFERENCE UNITS LAB L506.0400 0.76-1.46 ng/dL Normal T4 FREE 1.00 DIRECT Performed By: #### L500.4050, L501.9520, L506.0400 #### [facility] [facility] [place], [address] BNP,B-TYPE NATRIURETIC Collected: 11/02/2017 Status: F Source: [place] PEPTIDE 3:[address] [facility] REPOSITORY TYPE CODE TESTS RESULT OUT OF RANGE REFERENCE UNITS LAB L503.6620 0-100 pg/mL Normal B-TYPE < 2.0 KALLIE PEP Performed By: #### L503.6620 #### [facility] [place], [address] VITAMIN D,25 HYDROXY Collected: 11/02/2017 Status: F Source: [place] 3:[address] [facility] REPOSITORY TYPE CODE TESTS RESULT OUT OF REFERENCE UNITS RANGE LAB L506.1000 29.95-100.01 ng/mL Low Vitamin D 28.5 25-OH Result Comment: Vitamin D 25(OH) Status Range Deficiency <20 ng/mL (50nmol/L) Insuffciency 20 - 30 ng/mL (50 - 75 nmol/L) Sufficiency 30 - 100 ng/mL (75 - 250 nmol/L) Toxicity >100 ng/mL (>250 nmol/L) Performed By: #### L506.1000 #### [facility] [address] [place], [address] ALLERGIES ALLERGIES DATE TYPE / CODE NAME / CODE REACTION SEVERITY SOURCE 12/05/2017 Drug No Known Unknown [facility] Allergy/4160 Allergies/F00 [facility] [address](SNOMED [id number](RXNOR Repository CT) M) ENCOUNTERS ENCOUNTERS ADMIT/DISCHARGE ACCOUNT ADMITTING ENCOUNTER LOCATION SOURCE NUMBER CLASS 02/04/2018 [id number] Ambulatory [place] 1 [facility] ing:HPRAD Repository 02/04/2018 [id number] Ambulatory [place] 2 [facility] ing:BFHLAB Repository 12/05/2017/ [id number] Emergency [place] 8 5 [facility] ing:ED Repository 11/02/2017 [id number] Ambulatory [place] 0 [facility] ing:BFHLAB Repository PAYERS PAYERS ENCOUNTER GUARANTOR PAYER SUBSCRIBER SOURCE 02/04/2018 CHITO [id number] Primary CHITO Th[address] TR Insurance:MEDICARE MICKLEDOB: [address] [id number], [place] [address]Ajt: Number: Repository [id number] (HP) Date:2018-02-04 02/04/2018 Secondary CHITO S [place] Insurance:MEDICAIDPol [facility] ic Number: [id number] Hospital [id number] Repository Date:2018-02-04 02/04/2018 Tertiary NOT GIVENUNK [place] Insurance:SELF PAY [facility] Number: Effective Repository Date:2018-02-04 02/04/2018 CHITO Shi [id number] Primary CHITO S [place] TR Insurance:MEDICARE MICKLEDOB: [address] [id number], [place] [address]Cox: Number: Repository [id number] (HP) Date:2018-02-04 02/04/2018 Secondary CHITO S [place] Insurance:MEDICAIDPol [facility] ic Number: [id number] Hospital [id number] Repository Date:2018-02-04 02/04/2018 Tertiary NOT GIVENUNK [place] Insurance:SELF PAY [facility]: Effective Repository Date:2018-02-04 12/05/2017 CHITO Shi [id number] Primary CHITO [address] TR Insurance:MEDICARE MICKLEDOB: Community [address] [id number] [facility] , [place] [address]Jsw: Number: Repository [id number] (HP) Date:2017-12-05 12/05/2017 Secondary CHITO S [place] Insurance:MEDICAIDPol MICKLEDOB: Community ic Number: [id number] Hospital [id number] Repository Date:2017-12-05 12/05/2017 Tertiary NOT GIVENUNK [place] Insurance:SELF PAY [facility] Number: Effective Repository Date:2017-12-05 11/02/2017 Chito S [id number] Primary Chito Th[address] [facility] [address] Insurance:MEDICARE MickleDOB: [address] [id number] [facility] , [place] [address]Lqf: Number: Repository [id number] (HP) Date:2017-11-02 11/02/2017 Secondary Chito S [place] Insurance:MEDICAIDPol MickleDOB: Community icy Number: [id number] Hospital [id number] Repository Date:2017-11-02 11/02/2017 Tertiary NOT GIVENUNK [place] Insurance:SELF PAY [facility] Number: Effective Repository Date:2017-11-02
== END ==
PROVIDERS: Family Provider Family Medicine; PCP Family Medicine; Referring Provider Family Medicine; Visit Provider Family Medicine
DX: E11.9 Type 2 diabetes mellitus without complications (principal); I10 Essential (primary) hypertension; R06.02 Shortness of breath; E55.9 Vitamin D deficiency, unspecified
CPT/HCPCS: 36415; 71046; 80048; 82306; 84439; 84443; 85025

== ENCOUNTER → 2018-03-19 10:51 | Outpatient (CLI) | payer MEDICARE, MEDICAID, SELFPAY ==
[2018-03-19 12:54] LABS: T4 Free Direct 1.13 ng/dL (0.76-1.46); Thyroid Stim Hormone (TSH) 0.26 uIU/mL (0.358-3.74)
== END ==
PROVIDERS: Family Provider Family Medicine; PCP Family Medicine; Visit Provider Family Medicine
DX: E03.9 Hypothyroidism, unspecified (principal)
CPT/HCPCS: 36415; 84439; 84443

== ENCOUNTER → 2018-11-28 14:47 | Outpatient (CLI) | payer MEDICARE, MEDICAID, SELFPAY ==
[2018-11-28 14:37] VITALS: BMI 40.7
== END ==
PROVIDERS: Family Provider Family Medicine; PCP Family Medicine; Referring Provider Surgery; Visit Provider Surgery
DX: L72.3 Sebaceous cyst (principal); L08.9 Local infection of the skin and subcutaneous tissue, unspecified
CPT/HCPCS: 87070; 87075; 87077; 87205

== ENCOUNTER → 2019-01-08 08:27 | Outpatient (CLI) | payer MEDICARE, MEDICAID, SELFPAY ==
[2018-12-17 09:00] VITALS: BMI 40.7
[2019-01-08 12:21] LABS: Absolute Neutrophil Count 3.2 X10^3/uL (2.0-7.7); Basophil# 0.04 X10^3/uL; Basophil% 0.7 % (0-1); Eosinophil# 0.09 X10^3/uL; Eosinophils% 1.5 % (0-5); Hemoglobin 15.5 g/dL (13.0-16.5); Lymphocyte % 34.9 % (19-41); Mean Corp Hgb Conc 33.7 g/dL (32-36); Mean Corpuscular Hgb 31.1 pg (27.0-32.0); Mean Corpuscular Volume 92.4 fL (80-94); Monocyte# 0.55 X10^3/uL; Monocyte% 9.2 % (0-10); NRBC Flagged by Analyzer 0 % (0-5); Neutrophil # 3.22 X10^3/uL (2.7-7.7); Neutrophil % 53.5 % (47-70); Platelet Count 190 K/mm3 (150-450); RBC Distribution Width CV 11.9 % (11.6-14.6); RBC Distribution Width SD 40.5 fl (35.1-43.9); Red Blood Count 4.98 M/mm3 (4.6-6.2)
[2019-01-08 12:44] LABS: Vitamin D,25 Hydroxy 66.2 ng/mL (29.95-100.01)
[2019-01-08 12:46] LABS: ALB/GLOB Ratio 1.1 RATIO (0.9-2.4); AST(SGOT) 41 U/L (15-37); Alanine Aminotransfer ALT/SGPT 83 U/L (16-61); Albumin, Serum 4.2 g/dL (3.2-5.0); Alkaline Phosphatase 119 U/L (45-117); Anion Gap 11 (5-15); BUN 15 mg/dL (7-18); BUN/Creat Ratio 13.5 RATIO (10-20); Calcium,Total 9.1 mg/dL (8.5-10.1); Chloride 101 mmol/L (98-107); Creatinine, Serum 1.11 mg/dL (0.70-1.30); EST Glomerular Filtration Rate 72 mL/min (>60); Est Glom Filt Rate - Afr Amer 87 mL/min (>60); Globulin 3.7 g/dL (2.2-4.2); Glucose 230 mg/dL (74-106); Protein, Total 7.9 g/dL (6.4-8.2); Sodium Level 137 mmol/L (136-145); T4 Free Direct 1.39 ng/dL (0.76-1.46); Thyroid Stim Hormone (TSH) 0.51 uIU/mL (0.358-3.74)
== END ==
PROVIDERS: Family Provider Family Medicine; PCP Family Medicine; Visit Provider Family Medicine
DX: E11.9 Type 2 diabetes mellitus without complications (principal); I10 Essential (primary) hypertension; E55.9 Vitamin D deficiency, unspecified
CPT/HCPCS: 36415; 80053; 82306; 84439; 84443; 85025

== ENCOUNTER → 2019-01-16 08:17 | Outpatient (CLI) | payer MEDICARE, MEDICAID, SELFPAY ==
[2018-12-17 09:00] VITALS: BMI 40.7
--- NOTE | 2019-01-16 08:19 | RAD_ITS ---
STUDY: X-RAY - UNILATERAL RIBS ( RIGHT ) REASON FOR EXAM: Male, 58 years old. Pain. Trauma. TECHNIQUE: 4 view(s) of the ribs. COMPARISON: None. FINDINGS: Normal visualized ribs without a demonstrated fracture. The visualized lung is clear and expanded. RAD/Ribs Unil 2V No CXR IMPRESSION: Normal x-ray examination of the ribs. Electronically Signed: Sagar Cortez MD at 18:56 EST , Service support ,
--- NOTE | 2019-01-16 08:35 | RAD_ITS ---
STUDY: X-RAY CHEST REASON FOR EXAM: Male, 58 years old. Trauma. Pain. TECHNIQUE: Single AP portable view of the chest. COMPARISON: 01/16/2019. FINDINGS: Stable small metal foreign body in the left anterior chest wall. The lungs are clear and expanded. There is no demonstrated pleural abnormality. Normal size heart. Normal mediastinum and fausto. Normal visualized pulmonary arteries. Normal visualized aortic arch and descending thoracic aorta. Normal visualized thoracic spine. Normal visualized ribs, clavicles, and shoulders. There is no demonstrated abnormality of the visualized soft tissue structures of the upper abdomen. RAD/Chest PA and Lateral IMPRESSION: Normal x-ray examination of the chest. Electronically Signed: Sagar Cortez MD at 18:55 EST , Service support ,
--- NOTE | 2019-01-16 08:49 | US_ITS ---
STUDY: ABDOMINAL ULTRASOUND - RIGHT UPPER QUADRANT REASON FOR VISIT: Male, 58 years old right-sided pain. TECHNIQUE: Ultrasound evaluation of the right upper quadrant was performed with real-time and static malloy-scale imaging. TECHNICAL QUALITY: Limited. Examination limited due to a combination of factors including obesity and bowel gas. COMPARISON: None. FINDINGS: Liver: The liver measures 14.6 cm. There is increased echogenicity consistent with fatty infiltration. The bile ducts are within normal limits. There is hepatic color flow. The direction of portal flow is hepatopetal. There is no demonstrated mass lesion. Gallbladder: Normal distended gallbladder. The gallbladder wall measures 2.8 mm. There is a negative sonographic Delgado's sign. There is no pericholecystic fluid. There is biliary sludge dependent within the gallbladder. Common Bile Duct (C.B.D.): The common bile duct measures 2.3 mm. Pancreas: There is nonvisualization of the pancreas. Right Kidney: Normal size of the right kidney. The right kidney measures 12.2 x 5.6 x 6.2 cm. Normal renal cortex. The right cortex measures 1.8 cm. There is no demonstrated renal mass or cyst. There is no right hydronephrosis. US/Abdomen Limited IMPRESSION: Sludge within the gallbladder with no distinct signs of acute cholecystitis. Diffuse fatty liver. Nonvisualized pancreas, remainder of the right upper quadrant ultrasound unremarkable. Electronically Signed: Cindy Ashton MD at 1:24 EST , Service support ,
== END ==
PROVIDERS: Family Provider Family Medicine; PCP Family Medicine; Referring Provider Family Medicine; Visit Provider Family Medicine
DX: R10.11 Right upper quadrant pain (principal); R07.81 Pleurodynia
CPT/HCPCS: 71046; 71100; 76705

== ENCOUNTER → 2019-02-10 09:22 | Outpatient (CLI) | payer MEDICARE, MEDICAID, SELFPAY ==
[2019-02-05 09:09] VITALS: BMI 40.7
[2019-02-10 12:17] LABS: Absolute Lymphocyte Count 2.38 X10^3/uL (0.83-4.51); Absolute Neutrophil Count 3.3 X10^3/uL (2.0-7.7); Basophil# 0.04 X10^3/uL; Basophil% 0.6 % (0-1); Eosinophil# 0.07 X10^3/uL; Eosinophils% 1.1 % (0-5); Hematocrit 45.3 % (40-54); Hemoglobin 15.1 g/dL (13.0-16.5); Lymphocyte # 2.38 X10^3/ul (4.0); Lymphocyte % 37.3 % (19-41); Mean Corp Hgb Conc 33.3 g/dL (32-36); Mean Corpuscular Hgb 31.1 pg (27.0-32.0); Mean Corpuscular Volume 93.2 fL (80-94); Mean Platelet Vol. 10.6 fl (6.2-12.0); Monocyte# 0.53 X10^3/uL; Monocyte% 8.3 % (0-10); NRBC Flagged by Analyzer 0 % (0-5); Neutrophil # 3.34 X10^3/uL (2.7-7.7); Neutrophil % 52.4 % (47-70); Platelet Count 215 K/mm3 (150-450); RBC Distribution Width CV 12.1 % (11.6-14.6); Red Blood Count 4.86 M/mm3 (4.6-6.2); White Blood Count 6.4 K/mm3 (4.4-11.0)
[2019-02-10 12:34] LABS: ALB/GLOB Ratio 1.2 RATIO (0.9-2.4); AST(SGOT) 46 U/L (15-37); Alanine Aminotransfer ALT/SGPT 77 U/L (16-61); Albumin, Serum 4.2 g/dL (3.2-5.0); Alkaline Phosphatase 120 U/L (45-117); Anion Gap 3 (5-15); BUN 15 mg/dL (7-18); BUN/Creat Ratio 13.4 RATIO (10-20); Calcium,Total 9.1 mg/dL (8.5-10.1); Chloride 104 mmol/L (98-107); Creatinine, Serum 1.12 mg/dL (0.70-1.30); EST Glomerular Filtration Rate 71 mL/min (>60); Est Glom Filt Rate - Afr Amer 86 mL/min (>60); Globulin 3.6 g/dL (2.2-4.2); Glucose 154 mg/dL (74-106); Potassium 4.1 mmol/L (3.5-5.1); Protein, Total 7.8 g/dL (6.4-8.2); Sodium Level 136 mmol/L (136-145)
== END ==
PROVIDERS: Family Provider Family Medicine; PCP Family Medicine; Visit Provider Family Medicine
DX: I10 Essential (primary) hypertension (principal); E78.00 Pure hypercholesterolemia, unspecified
CPT/HCPCS: 36415; 80053; 85025

== ENCOUNTER 2019-02-11 08:47 | Day surgery (SDC) | payer MEDICARE, MEDICAID, SELFPAY ==
[2019-02-05 09:09] VITALS: BMI 40.7
--- NOTE | 2019-02-07 02:27 | HP_ITS ---
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 Is patient in pain?: No Allergies No Known Allergies Allergy (Verified 02/07/19 12:29) Medications Cholecalciferol (Vitamin D3) [Vitamin D3] 10,000 unit PO DAILY 12/05/17 [History Confirmed 02/07/19] Latanoprost 0.005% [Xalatan Opthalmic] 1 drp EACH EYE DAILY 12/05/17 [History Confirmed 02/07/19] Meloxicam 1 tab PO PRN PRN 12/05/17 [History Confirmed 02/07/19] Metformin HCl 1,000 mg PO BID 12/05/17 [History Confirmed 02/07/19] Rosuvastatin Calcium [Crestor] 10 mg PO QHS 12/05/17 [History Confirmed 02/07/19] levothyroxine 100 mcg tablet 125 mcg PO DAILY tab 11/28/18 [History Confirmed 02/07/19] losartan 50 mg tablet 50 mg PO BID 11/28/18 [History Confirmed 02/07/19] Glipizide 5 mg PO DAILY 02/07/19 [History Confirmed 02/07/19] Omeprazole 40 mg PO QHS 02/07/19 [History Confirmed 02/07/19] PFSH Medical History CAD (coronary artery disease) (Acute) Diabetes (Acute) Hypothyroidism (Acute) HTN (hypertension) (Chronic) Surgical History S/P knee surgery (Acute) S/P tonsillectomy (Acute) s/p neck surgery (Acute) Family History Grandmother Colon cancer Social History (Updated 02/07/19 @ 14:27 by Jose Bowman MD) Smoking Status: Former smoker alcohol intake: never HPI HPI HPI: WANDA BRIGETTE, is a 58 M who presents to the office today for HPI HPI Surgical H&P: Yes HPI: WANDA MACHUCA is a 58 M who presents to the office today for right upper quadrant pain. Patient reports that it has been going on for a few months. Patient reports no nausea or vomiting but he does have right upper quadrant pain which lasts 1 to 2 hours per episode. He is also having dysphasia. Patient reports his last colonoscopy was 10 years ago which found no polyps. ROS General General: No weight change or fatigue Skin Additional Details: Sebaceous cyst on his back Cardio Cardiovascular: No murmur, pacemaker, heart disease, atrial fibrillation, high blood pressure, heart attack, heart stent, palpitations, shortness of breat with exertion or chest pain Psych Psychiatric: No depression or anxiety Resp Respiratory: No shortness of breath, No sleep apnea, No cough, No COPD, No asthma, No emphysema, No wheezing Gastro Gastrointestinal: No abdominal pain, No nausea or vomiting, No diarrhea, No constipation, No blood in stool, No acid reflux, No hemorrhoids, No ulcers, No gallbladder problem, No black,tarry stools Rory Hematologic: No blood thinners Exam Const General: cooperative Orientation: alert, oriented x3 HENMT Head: normal to inspection Ears: hearing grossly normal bilaterally Eyes General: appearance normal, both eyes and all related structures Visual Rouse: normal visual rouse by confrontation Neck Neck: normal visual inspection Chest Chest palpation & inspection: normal inspection of the chest Resp Effort & Inspection: normal respiratory effort Auscultation: clear to auscultation bilaterally Cardio Rate: regular rate Rhythm: regular rhythm Heart Sounds: no murmurs GI Inspection: non-distended Palpation: soft, nontender Musc Cervical Spine: normal cervical lordosis, cervical ROM normal Skin General: no rashes or lesions noted Neuro General: alert, oriented x3 Cranial Nerves: CN's II-XI intact bilaterally Cognition: normal cognition Extrem General: normal to inspection, full ROM Psych Appearance: grossly normal Affect: normal affect Assessment & Plan Problems 1. Dysphagia, unspecified type R13.10 2. Screen for colon cancer Z12.11 3. Biliary sludge K83.8 Plan Patient is having dysphasia as well as in need of screening colonoscopy as it has been 10 years. I will plan for EGD and colonoscopy. I explained endoscopy in detail to the patient. I explained the risks including but not limited to stroke or heart attack with anesthesia, perforation of the GI tract, bleeding, infection. I explained that any of these could necessitate further emergency surgery. The patient understands and all questions were answered sufficiently. The patient wishes to proceed with procedure. Patient also has sludge in his gallbladder and is having right upper quadrant pain. I recommended laparoscopic cholecystectomy. I discussed the procedure in detail with the patient. I discussed the risks, benefits, and alternatives of the procedure. I discussed the risks including but not limited to bleeding, infection, injury to surrounding organs such as the liver, bile duct, bowels. I did discuss the possibility of having to convert to an open procedure as well as the possibility that if any injuries occurred this may necessitate further surgery at a tertiary care center. Jose Bowman MD Pager: [facility] [address] [place] [address], [address] [place] [address] Office: Orders Orders: Colonoscopy 02/05/19 Z12.11 EGD 02/05/19 K21.9, R13.10 Coding Level of Care Code Off vis,est,level 4 Diagnoses Dysphagia, unspecified type R13.10 ??Dysphagia type: unspecified Screen for colon cancer Z12.11 Biliary sludge K83.8 Time Spent (min) 45 02/07/19 1427 <Electronically signed by Jose cifuentes MD> Date _ Jose Bowman MD I have re-examined the patient. There are no clinical changes since date of exam.
--- NOTE | 2019-02-11 | IMM_PTH ---
PATIENT: WANDA MACHUCA LOC: EN U#:[id number] AGE/SX: 58/M ROOM: RE02/11/[address]: Dr. Jose Bowman MD : 1960 BED: DIS: 02/11/2019 SPEC #: [id number] RECD: 02/11/19 15:04 STATUS: YAA REAmilcar #: [id number] NATE: 02/11/19 00:[address]: Jose Bowman DEPT: IMMUNOHISTOCHEMISTRY RECD BY: Giuseppe Soni ENTERED: 02/11/19 15:04 SP TYPE: IMMUNO OTHR DR: Dr. Bernardo Mckee MD Tissues: Gastric mucous membrane Procedures: H Pylori (initial) PHYSICIAN & INSTITUTION [place] [address] SPECIMEN INFORMATION: Tissue Source: Antrum biopsy Clinical Info: Dysphagia, screening, biliary sludge Specimen Number: [id number] CPT code: 74624 METHODOLOGY: Deparaffinized sections of prefer/formalin-fixed tissue or PAP/DQ stained slides are incubated with monoclonal/polyclonal antibodies/oligonucleotide probes. Localization is made via biotin free immunoperoxidase method. Appropriate controls are performed and reacted as expected. Results on target cell population are indicated in the following table: RESULTS: ANTIBODY / CLONE RESULT H Pylori (polyclonal) negative These tests were developed and their performance characteristics determined by [facility]. They may not have been cleared or approved by the U.S. Food and Drug Administration. The FDA has determined that such clearance or approval is not necessary. INTERPRETATION: Antrum, biopsy: Negative for Helicobacter pylori organisms. SJ:poornima 02/12/19
--- NOTE | 2019-02-11 | GASB_PTH ---
PATIENT: WANDA MACHUCA LOC: EN U#:[id number] AGE/SX: 58/M ROOM: RE02/11/[address]: Dr. Jose Bowman MD : 1960 BED: DIS: 02/11/2019 SPEC #: [id number] RECD: 02/11/19 13:19 STATUS: YAA REAmilcar #: [id number] NATE: 02/11/19 00:[address]: Jose Bowman DEPT: SURGICAL PATHOLOGY RECD BY: Dmitry Amdao ENTERED: 02/11/19 13:19 SP TYPE: Gastric Bx OTHR DR: Dr. Bernardo Mckee MD Tissues: Gastric mucous membrane Procedures: Surgery Specimen Level IV HEADER OPERATION: Colonoscopy, EGD ([facility]) PRE-OP DIAGNOSIS: Dysphagia, screening, biliary sludge TISSUE SUBMITTED: Antrum biopsy MICROSCOPIC DIAGNOSIS Antrum, biopsy: Mild gastritis. SJ:al 02/12/19 COMMENT The results of immunohistochemistry for Helicobacter pylori will be reported separately ([id number]). MICROSCOPIC DESCRIPTION Slides are reviewed. Sections show small collections and groups of plasma cells in the mucosa. Active inflammation is not present. These findings are consistent with mild chronic gastritis. A few minute lymphoid aggregates are noted, favor benign. GROSS DESCRIPTION Received is one container labeled with the patient name and designated antral biopsy. The specimen consists of two irregular fragments of light mitchell soft tissue that in aggregate measure 0.6 x 0.3 x 0.1 cm. The specimen is totally submitted in one cassette. / AM:sp 02/11/19 TC: 3 [facility]: [id number]
[2019-02-11 09:17] VITALS: BP 146/91; PULSE 85; RESP 18; TEMP 36.7; O2SAT 98; BMI 37.8
[2019-02-11] MEDS: Lactated Ringers 1,000 ML 100 ML IV (09:29)
[2019-02-11 09:50] LABS: Bedside Glucose 152 mg/dL (70-110)
--- NOTE | 2019-02-11 11:05 | OP.EGD_ITS ---
Patient Name: Chito Ramirez Procedure Date: 02/11/2019 10:32 AM Date of : 1960 Age: 58 Procedure: Upper GI endoscopy Indications: Dysphagia Providers: Jose Bowman MD Referring MD: Bernardo Mckee Patient Profile: This is a 58 year old male. Refer to note in patient chart for documentation of history and physical. Complications: No immediate complications. Estimated blood loss: Minimal. Procedure: Pre-Anesthesia Assessment: - Prior to the procedure, a History and Physical was performed, and patient medications and allergies were reviewed. The patient's tolerance of previous anesthesia was also reviewed. The risks and benefits of the procedure and the sedation options and risks were discussed with the patient. All questions were answered, and informed consent was obtained. Prior Anticoagulants: The patient has taken no previous anticoagulant or antiplatelet agents. After reviewing the risks and benefits, the patient was deemed in satisfactory condition to undergo the procedure. After obtaining informed consent, the endoscope was passed under direct vision. Throughout the procedure, the patient's blood pressure, pulse, and oxygen saturations were monitored continuously. The gastroscope was introduced through the mouth, and advanced to the second part of duodenum. The upper GI endoscopy was accomplished without difficulty. The patient tolerated the procedure well. Scope In: 10:41:31 AM Scope Out: 10:43:30 AM Total Procedure Duration Time 0 hours 1 minute 59 seconds Findings: The esophagus was normal. The stomach was normal. The examined duodenum was normal. Biopsies were taken with a cold forceps in the gastric antrum for Helicobacter pylori testing. Impression: - Normal esophagus. - Normal stomach. - Normal examined duodenum. - Biopsies were taken with a cold forceps for Helicobacter pylori testing. Recommendation: - Resume previous diet. - Continue present medications. - Await pathology results. Procedure Code(s): --- Professional --- 03005, Esophagogastroduodenoscopy, flexible, transoral; with biopsy, single or multiple Diagnosis Code(s): --- Professional --- R13.10, Dysphagia, unspecified CPT copyright 2017 [employer]. All rights reserved. The codes documented in this report are preliminary and upon white shoe ragger review may be revised to meet current compliance requirements. Jose Bowman MD 02/11/2019 11:05:48 AM This report has been signed electronically. Number of Addenda: 0 Note Initiated On: 02/11/2019 10:32 AM
[2019-02-11 11:07] VITALS: BP 131/79; BP 146/91; PULSE 91; RESP 16; TEMP 36.9; O2SAT 95
--- NOTE | 2019-02-11 11:07 | OP.COLON_ITS ---
Patient Name: Chito Ramirez Procedure Date: 02/11/2019 10:46 AM Date of : 1960 Age: 58 Procedure: Colonoscopy Indications: Screening for colorectal malignant neoplasm Providers: Jose Bowman MD Referring MD: Bernardo Mckee Medicines: Monitored Anesthesia Care Patient Profile: This is a 58 year old male. Refer to note in patient chart for documentation of history and physical. Last Colonoscopy: none. The patient's first colonoscopy is today. Complications: No immediate complications. Procedure: Pre-Anesthesia Assessment: - Prior to the procedure, a History and Physical was performed, and patient medications and allergies were reviewed. The patient's tolerance of previous anesthesia was also reviewed. The risks and benefits of the procedure and the sedation options and risks were discussed with the patient. All questions were answered, and informed consent was obtained. Prior Anticoagulants: The patient has taken no previous anticoagulant or antiplatelet agents. After reviewing the risks and benefits, the patient was deemed in satisfactory condition to undergo the procedure. After I obtained informed consent, the scope was passed under direct vision. Throughout the procedure, the patient's blood pressure, pulse, and oxygen saturations were monitored continuously. The Duodenoscope was introduced through the anus and advanced to the cecum, identified by appendiceal orifice and ileocecal valve. The colonoscopy was performed without difficulty. The patient tolerated the procedure well. The quality of the bowel preparation was good. Scope In: Scope Withdrawal Time 0 hours 6 minutes 15 seconds Scope Out: 11:00:46 AM Findings: The entire examined colon appeared normal on direct and retroflexion views. Impression: - The entire examined colon is normal on direct and retroflexion views. - No specimens collected. Recommendation: - Discharge patient to home. - Resume previous diet. - Continue present medications. - Repeat colonoscopy in 10 years for screening purposes. Procedure Code(s): --- Professional --- 46161, Colonoscopy, flexible; diagnostic, including collection of specimen(s) by brushing or washing, when performed (separate procedure) Diagnosis Code(s): --- Professional --- Z12.11, Encounter for screening for malignant neoplasm of colon CPT copyright 2017 [employer]. All rights reserved. The codes documented in this report are preliminary and upon hospital coder review may be revised to meet current compliance requirements. Jose Bowman MD 02/11/2019 11:06:53 AM This report has been signed electronically. Number of Addenda: 0 Note Initiated On: 02/11/2019 10:46 AM
[2019-02-11 11:12] VITALS: BP 131/79; BP 146/91; PULSE 80; RESP 14; O2SAT 96
[2019-02-11 11:18] VITALS: BP 125/82; BP 146/91; PULSE 83; RESP 16; O2SAT 97
[2019-02-11 11:22] VITALS: BP 128/76; BP 146/91; PULSE 78; RESP 16; TEMP 36.7; O2SAT 95
== END 2019-02-11 12:04 | disposition home or self-care (01) ==
LOC: EN 08:48 → AC 08:55
PROVIDERS: Family Provider Family Medicine; PCP Family Medicine; Referring Provider Family Medicine; Visit Provider Surgery
PROC: 0DJD8ZZ Inspection of Lower Intestinal Tract, Via Natural or Artificial Opening Endoscopic (ICD-10-PCS; CPT 45378; principal; 2019-02-11 10:10)
DX: Z12.11 Encounter for screening for malignant neoplasm of colon (principal); K29.70 Gastritis, unspecified, without bleeding; K83.8 Other specified diseases of biliary tract; R13.10 Dysphagia, unspecified; I25.10 Atherosclerotic heart disease of native coronary artery without angina pectoris; I10 Essential (primary) hypertension; E03.9 Hypothyroidism, unspecified; E78.00 Pure hypercholesterolemia, unspecified; E11.9 Type 2 diabetes mellitus without complications; Z79.84 Long term (current) use of oral hypoglycemic drugs; Z79.899 Other long term (current) drug therapy; Z87.891 Personal history of nicotine dependence; Z86.73 Personal history of transient ischemic attack (TIA), and cerebral infarction without residual deficits
CPT/HCPCS: 43239; G0121; 82962; 88305; 88342; J7120; J2405

== ENCOUNTER 2019-02-18 09:11 | Day surgery (SDC) | payer MEDICARE, MEDICAID, SELFPAY ==
[2019-02-05 09:09] VITALS: BMI 40.7
--- NOTE | 2019-02-07 02:27 | HP_ITS ---
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 Is patient in pain?: No Allergies No Known Allergies Allergy (Verified 02/07/19 12:29) Medications Cholecalciferol (Vitamin D3) [Vitamin D3] 10,000 unit PO DAILY 12/05/17 [History Confirmed 02/07/19] Latanoprost 0.005% [Xalatan Opthalmic] 1 drp EACH EYE DAILY 12/05/17 [History Confirmed 02/07/19] Meloxicam 1 tab PO PRN PRN 12/05/17 [History Confirmed 02/07/19] Metformin HCl 1,000 mg PO BID 12/05/17 [History Confirmed 02/07/19] Rosuvastatin Calcium [Crestor] 10 mg PO QHS 12/05/17 [History Confirmed 02/07/19] levothyroxine 100 mcg tablet 125 mcg PO DAILY tab 11/28/18 [History Confirmed 02/07/19] losartan 50 mg tablet 50 mg PO BID 11/28/18 [History Confirmed 02/07/19] Glipizide 5 mg PO DAILY 02/07/19 [History Confirmed 02/07/19] Omeprazole 40 mg PO QHS 02/07/19 [History Confirmed 02/07/19] PFSH Medical History CAD (coronary artery disease) (Acute) Diabetes (Acute) Hypothyroidism (Acute) HTN (hypertension) (Chronic) Surgical History S/P knee surgery (Acute) S/P tonsillectomy (Acute) s/p neck surgery (Acute) Family History Grandmother Colon cancer Social History (Updated 02/07/19 @ 14:27 by Jose Bowman MD) Smoking Status: Former smoker alcohol intake: never HPI HPI HPI: WANDA BRIGETTE, is a 58 M who presents to the office today for HPI HPI Surgical H&P: Yes HPI: WANDA MACHUCA is a 58 M who presents to the office today for right upper quadrant pain. Patient reports that it has been going on for a few months. Patient reports no nausea or vomiting but he does have right upper quadrant pain which lasts 1 to 2 hours per episode. He is also having dysphasia. Patient reports his last colonoscopy was 10 years ago which found no polyps. ROS General General: No weight change or fatigue Skin Additional Details: Sebaceous cyst on his back Cardio Cardiovascular: No murmur, pacemaker, heart disease, atrial fibrillation, high blood pressure, heart attack, heart stent, palpitations, shortness of breat with exertion or chest pain Psych Psychiatric: No depression or anxiety Resp Respiratory: No shortness of breath, No sleep apnea, No cough, No COPD, No asthma, No emphysema, No wheezing Gastro Gastrointestinal: No abdominal pain, No nausea or vomiting, No diarrhea, No constipation, No blood in stool, No acid reflux, No hemorrhoids, No ulcers, No gallbladder problem, No black,tarry stools Rory Hematologic: No blood thinners Exam Const General: cooperative Orientation: alert, oriented x3 HENMT Head: normal to inspection Ears: hearing grossly normal bilaterally Eyes General: appearance normal, both eyes and all related structures Visual Rouse: normal visual rouse by confrontation Neck Neck: normal visual inspection Chest Chest palpation & inspection: normal inspection of the chest Resp Effort & Inspection: normal respiratory effort Auscultation: clear to auscultation bilaterally Cardio Rate: regular rate Rhythm: regular rhythm Heart Sounds: no murmurs GI Inspection: non-distended Palpation: soft, nontender Musc Cervical Spine: normal cervical lordosis, cervical ROM normal Skin General: no rashes or lesions noted Neuro General: alert, oriented x3 Cranial Nerves: CN's II-XI intact bilaterally Cognition: normal cognition Extrem General: normal to inspection, full ROM Psych Appearance: grossly normal Affect: normal affect Assessment & Plan Problems 1. Dysphagia, unspecified type R13.10 2. Screen for colon cancer Z12.11 3. Biliary sludge K83.8 Plan Patient is having dysphasia as well as in need of screening colonoscopy as it has been 10 years. I will plan for EGD and colonoscopy. I explained endoscopy in detail to the patient. I explained the risks including but not limited to stroke or heart attack with anesthesia, perforation of the GI tract, bleeding, infection. I explained that any of these could necessitate further emergency surgery. The patient understands and all questions were answered sufficiently. The patient wishes to proceed with procedure. Patient also has sludge in his gallbladder and is having right upper quadrant pain. I recommended laparoscopic cholecystectomy. I discussed the procedure in detail with the patient. I discussed the risks, benefits, and alternatives of the procedure. I discussed the risks including but not limited to bleeding, infection, injury to surrounding organs such as the liver, bile duct, bowels. I did discuss the possibility of having to convert to an open procedure as well as the possibility that if any injuries occurred this may necessitate further surgery at a tertiary care center. Jose Bowman MD Pager: [facility] [address] [place] [address], [address] [place] [address] Office: Orders Orders: Colonoscopy 02/05/19 Z12.11 EGD 02/05/19 K21.9, R13.10 Coding Level of Care Code Off vis,est,level 4 Diagnoses Dysphagia, unspecified type R13.10 ??Dysphagia type: unspecified Screen for colon cancer Z12.11 Biliary sludge K83.8 Time Spent (min) 45 02/07/19 1427 <Electronically signed by Jose cifuentes MD> Date _ Jose Bowman MD I have re-examined the patient. There are no clinical changes since date of exam.
[2019-02-18] VITALS (8 sets, daily range): BP systolic 121–161; BP diastolic 67–94; PULSE 46–78; RESP 16–20; TEMP 36.1–36.9; O2SAT 92–100; BMI 38.4
--- NOTE | 2019-02-18 | GALL_PTH ---
PATIENT: WANDA MACHUCA [place] [facility] [place][id number] AGE/SX: 58/M ROOM: RE02/18/[address]: Dr. Jose Bowman MD : 1960 BED: DIS: 02/18/2019 SPEC #: [id number] RECD: 02/18/19 13:15 STATUS: YAA REAmilcar #: [id number] NATE: 02/18/19 00:[address]: Jose Bowman DEPT: SURGICAL PATHOLOGY RECD BY: Dmitry Amado ENTERED: 02/18/19 13:16 SP TYPE: ALISHA NEGRON DR: Dr. Bernardo Mckee MD Tissues: Gallbladder, NOS Procedures: Surgery Specimen Level III Comments: @ Specimen number changed from [id number] to [id number] @ on 02/18/19 at 1415 by RGOOD. HEADER OPERATION: Laparoscopic cholecystectomy with IOC PRE-OP DIAGNOSIS: Dysphagia; biliary sludge TISSUE SUBMITTED: Gallbladder MICROSCOPIC DIAGNOSIS Gallbladder, cholecystectomy: Cholesterolosis and mild chronic cholecystitis. AM:zaheer 02/19/19 MICROSCOPIC DESCRIPTION Slides are reviewed. GROSS DESCRIPTION Received is one container labeled with the patient's name and designated gallbladder. The specimen consists of a gallbladder measuring 6.5 x 2 x 1.5 cm. The external surface is smooth and glistening. Focally, it is granular, hemorrhagic and contains cautery artifact. The lumen of the gallbladder contains yellow-green mucoid bile. No stones are identified in the container or in the gallbladder. The mucosa is bile-stained and without any mass lesions. The gallbladder wall averages 0.2 cm in thickness and is free of mass lesions. Service Liaison Representative sections of the gallbladder and the cystic duct are submitted in one cassette. / AM:zaheer 02/18/19 TC:3 CPT: 32019
--- NOTE | 2019-02-18 09:29 | EKG12_ITS ---
Test Reason : PRE-OP Blood Pressure : / mmHG Vent. Rate : 069 BPM Atrial Rate : 069 BPM P-R Int : 174 ms QRS Dur : 100 ms QT Int : 396 ms P-R-T Axes : 022 -48 030 degrees QTc Int : 424 ms Normal sinus rhythm Left anterior fascicular block Abnormal ECG Confirmed by DORINDA KERNS, CHAPARRITA ([id number]), editorial manager ZINA RICO ([id number]) on 02/19/2019 1:33:53 PM Referred By: Jose Bowman Confirmed By:CHAPARRITA SETH MD
--- NOTE | 2019-02-18 09:38 | HP.PCM_ITS ---
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 Is patient in pain?: No Allergies No Known Allergies Allergy (Verified 02/07/19 12:29) Medications Cholecalciferol (Vitamin D3) [Vitamin D3] 10,000 unit PO DAILY 12/05/17 [History Confirmed 02/07/19] Latanoprost 0.005% [Xalatan Opthalmic] 1 drp EACH EYE DAILY 12/05/17 [History Confirmed 02/07/19] Meloxicam 1 tab PO PRN PRN 12/05/17 [History Confirmed 02/07/19] Metformin HCl 1,000 mg PO BID 12/05/17 [History Confirmed 02/07/19] Rosuvastatin Calcium [Crestor] 10 mg PO QHS 12/05/17 [History Confirmed 02/07/19] levothyroxine 100 mcg tablet 125 mcg PO DAILY tab 11/28/18 [History Confirmed 02/07/19] losartan 50 mg tablet 50 mg PO BID 11/28/18 [History Confirmed 02/07/19] Glipizide 5 mg PO DAILY 02/07/19 [History Confirmed 02/07/19] Omeprazole 40 mg PO QHS 02/07/19 [History Confirmed 02/07/19] [facility] Medical History CAD (coronary artery disease) (Acute) Diabetes (Acute) Hypothyroidism (Acute) HTN (hypertension) (Chronic) Surgical History S/P knee surgery (Acute) S/P tonsillectomy (Acute) s/p neck surgery (Acute) Family History Grandmother Colon cancer Social History (Updated 02/07/19 @ 14:27 by Jose Bowman MD) Smoking Status: Former smoker alcohol intake: never HPI HPI HPI: WANDA MACHUCA, is a 58 M who presents to the office today for HPI HPI Surgical H&P: Yes HPI: WANDA MACHUCA, is a 58 M who presents to the office today for right upper quadrant pain. Patient reports that it has been going on for a few months. Patient reports no nausea or vomiting but he does have right upper quadrant pain which lasts 1 to 2 hours per episode. He is also having dysphasia. Patient reports his last colonoscopy was 10 years ago which found no polyps. ROS General General: No weight change or fatigue Skin Additional Details: Sebaceous cyst on his back Cardio Cardiovascular: No murmur, pacemaker, heart disease, atrial fibrillation, high blood pressure, heart attack, heart stent, palpitations, shortness of breat with exertion or chest pain Psych Psychiatric: No depression or anxiety Resp Respiratory: No shortness of breath, No sleep apnea, No cough, No COPD, No asthma, No emphysema, No wheezing Gastro Gastrointestinal: No abdominal pain, No nausea or vomiting, No diarrhea, No constipation, No blood in stool, No acid reflux, No hemorrhoids, No ulcers, No gallbladder problem, No black,tarry stools Rory Hematologic: No blood thinners Exam Const General: cooperative Orientation: alert, oriented x3 HENMT Head: normal to inspection Ears: hearing grossly normal bilaterally Eyes General: appearance normal, both eyes and all related structures Visual Rouse: normal visual rouse by confrontation Neck Neck: normal visual inspection Chest Chest palpation & inspection: normal inspection of the chest Resp Effort & Inspection: normal respiratory effort Auscultation: clear to auscultation bilaterally Cardio Rate: regular rate Rhythm: regular rhythm Heart Sounds: no murmurs GI Inspection: non-distended Palpation: soft, nontender Musc Cervical Spine: normal cervical lordosis, cervical ROM normal Skin General: no rashes or lesions noted Neuro General: alert, oriented x3 Cranial Nerves: CN's II-XI intact bilaterally Cognition: normal cognition Extrem General: normal to inspection, full ROM Psych Appearance: grossly normal Affect: normal affect Assessment & Plan Problems 1. Dysphagia, unspecified type R13.10 2. Screen for colon cancer Z12.11 3. Biliary sludge K83.8 Plan Patient is having dysphasia as well as in need of screening colonoscopy as it has been 10 years. I will plan for EGD and colonoscopy. I explained endoscopy in detail to the patient. I explained the risks including but not limited to stroke or heart attack with anesthesia, perforation of the GI tract, bleeding, infection. I explained that any of these could necessitate further emergency surgery. The patient understands and all questions were answered sufficiently. The patient wishes to proceed with procedure. Patient also has sludge in his gallbladder and is having right upper quadrant pain. I recommended laparoscopic cholecystectomy. I discussed the procedure in detail with the patient. I discussed the risks, benefits, and alternatives of the procedure. I discussed the risks including but not limited to bleeding, infection, injury to surrounding organs such as the liver, bile duct, bowels. I did discuss the possibility of having to convert to an open procedure as well as the possibility that if any injuries occurred this may necessitate further surgery at a tertiary care center. Jose Bowman MD Pager: [facility] [address] [place] [address] [address] [place] [address] Office:
[2019-02-18 10:15] LABS: Bedside Glucose 89 mg/dL (70-110)
[2019-02-18] MEDS: Lactated Ringers 1,000 ML 100 ML IV ×2 (10:42→12:14)
--- NOTE | 2019-02-18 11:00 | RAD_ITS ---
STUDY: INTRAOPERATIVE CHOLANGIOGRAM. REASON FOR EXAM: Male, 58 years old. Laparoscopic cholecystectomy. FLUOROSCOPY TIME (if supplied): ( 13.4 seconds ) minutes/seconds. A single loop of 86 images was obtained. TECHNIQUE: Intraoperative Cholangiogram was performed of the surgeon. Imaging was submitted. COMPARISON: None. FINDINGS: The visualized intrahepatic biliary ducts are unremarkable. The common bile duct is not dilated. No intraluminal filling defect is seen. There is free flow of contrast into the duodenum. RAD/Cholangiogram/ O R,Initial IMPRESSION: Unremarkable intraoperative cholangiogram. Electronically Signed: Bruce Lindo, at 13:21 EST , Service support ,
[2019-02-18] MEDS: Bupiv/Epi 0.25% 30 ML Vial (11:41)
--- NOTE | 2019-02-18 11:48 | PCM.OPRPT ---
Problem List (1) Cholelithiasis Status: Acute Report of Operation Date of Procedure: 02/18/19 Pre-Operative Diagnosis: Cholelithiasis Post-Operative Diagnosis: Same Surgery/Procedure Performed:: Laparoscopic cholecystectomy with cholangiogram Specimen's removed: Gallbladder and contents Description of Procedure: After obtaining informed consent patient was brought back to the operating room. General anesthesia was induced. The abdomen was prepped and draped in usual sterile fashion. A small midline incision was made superior to the umbilicus and deepened to the level of fascia. The fascia was elevated and incised. Next the peritoneum was elevated and incised in the same fashion. Finger sweep was performed and the Fitch trocar was placed into the abdomen. The balloon was inflated. The abdomen was inflated to 15 mmHg. Next a camera was introduced into the abdomen and the abdomen was inspected. Next under direct visualization three 5-mm ports were placed one subxiphoid and 2 subcostal. Next the gallbladder was elevated and retracted toward the right shoulder. The peritoneum was stripped from the gallbladder. The infundibulum was located and retracted laterally. Next the triangle of Calot was dissected and the cystic duct and cystic artery were identified. Cholangiograms were performed. The Hamlin clamp was used to clamp across the infundibulum and the catheter needle was inserted into the gallbladder. Under fluoroscopy contrast was instilled into the gallbladder and the common duct, cystic duct as well as proximal hepatic ducts were identified. There was good filling of the duodenum. There were no filling defects noted in the common bile duct. The clamp was removed as well as the needle and the infundibulum was grasped once more. Three hemolock clips were placed across the cystic duct. The cystic duct was then divided leaving 2 clips on the stump. The cystic artery was clipped and divided in the same fashion. The hook cautery was then used to take the gallbladder off of the gallbladder bed. Hemostasis was obtained. Gallbladder fossa was irrigated and no active bleeding or bile leakage was noted. Next the camera switched to a 5 mm camera and introduced in the subxiphoid port. An Endopouch bag was placed through the umbilical port and the gallbladder was placed into it. The gallbladder was then removed through the umbilical incision. The camera was then reinserted through the umbilical port. The gallbladder fossa was inspected once more and noted to be hemostatic with no leaking bile. The abdomen was suctioned dry. The 5 mm ports were removed under direct visualization. The umbilical port was then removed and the air was removed from the abdomen. Next using an 0 Vicryl suture the umbilical fascia was closed in a [id number] fashion. The umbilical port site was irrigated local anesthetic was administered to all the incisions. All the incisions were closed with interrupted subcuticular 4-0 Monocryl sutures followed by Steri-Strips and dressings. The patient was awoken and taken to PACU in stable condition. - Admit VTE Documentation VTE Mechan Device Prophylaxis: SCD's
--- NOTE | 2019-02-18 11:51 | PCM.DC.GB ---
Discharge Diet: Light diet - advance as tolerated Discharge Activity: Return to Normal Activity, May Not Drive - for 2-3 days or while taking narcotic pain medicataions., - - Do not drive, work heavy equipment or sign legal documents for 24 hours. May shower in (days): 1 - with the bandage in place. Lifting Restrictions: 20 lbs for 2 weeks Additional Activity Instructions:: Pain medication may cause nausea. You should typically eat light foods as you take your pain medications. Pain medication may also cause constipation. If this is a problem for you, please discuss with your doctor. Call your doctor if your incision/area has: Continuous Slow Oozing, Sudden Increased Bleeding, Increased Pain/ Swelling, Increased Redness, Foul Smelling Discharge, Fever of 101 or Higher Call your doctor if you observe: Fever of 101 or Higher Suture Line Care: Avoid Pulling/Pushing, Avoid Pinching/Bending Additional Dressing/Incision Instructions:: Leave operative bandaids on for 2 days. When you remove dressing, leave Steri-Strips on until your follow-up appointment, or until the Steri-Strips fall off on their own. Allergies/Adverse Reactions: Allergies No Known Allergies Allergy (Verified 02/18/19 09:39) Medications to take at Discharge Cholecalciferol (Vitamin D3) [Vitamin D3] 10,000 unit PO DAILY 12/05/17 Latanoprost 0.005% [Xalatan Opthalmic] 1 drp EACH EYE DAILY 12/05/17 Meloxicam 1 tab PO PRN PRN 12/05/17 Metformin HCl 1,000 mg PO BID 12/05/17 Rosuvastatin Calcium [Crestor] 10 mg PO QHS 12/05/17 levothyroxine 100 mcg tablet 125 mcg PO DAILY tab 11/28/18 losartan 50 mg tablet 50 mg PO BID 11/28/18 Glipizide 5 mg PO DAILY 02/07/19 Omeprazole 40 mg PO QHS 02/07/19 traMADol [Ultram (G)] 50 - 100 mg PO Q4H PRN PRN 5 Days #30 tablet 02/18/19 The following prescriptions were given: traMADol [Ultram (G)] 50 - 100 mg PO Q4H PRN PRN 5 Days #30 tablet PRN Reason: Pain Score 4-10/10 Transmission Status: Sent to [facility] Primary Care Physician: Bernardo Mckee MD [Primary Care Provider] - Test Results: Test results from this visit will be discussed in further detail at your follow-up appointment, if applicable. Please Follow Up With: Jose Bowman MD When: Please call to schedule 2 week follow up appointment. [phone]
[2019-02-18 12:25] LABS: Bedside Glucose 122 mg/dL (70-110)
[2019-02-18] MEDS: traMADol 50 MG Tablet 100 MG PO (13:46)
== END 2019-02-18 14:31 | disposition home or self-care (01) ==
LOC: SDC 09:11 → AC 09:13
PROVIDERS: Family Provider Family Medicine; PCP Family Medicine; Referring Provider Surgery; Visit Provider Surgery
PROC: (CPT 47610; principal; 2019-02-18 10:40)
DX: K81.1 Chronic cholecystitis (principal); I25.10 Atherosclerotic heart disease of native coronary artery without angina pectoris; I10 Essential (primary) hypertension; E11.9 Type 2 diabetes mellitus without complications; E78.00 Pure hypercholesterolemia, unspecified; E03.9 Hypothyroidism, unspecified; Z79.84 Long term (current) use of oral hypoglycemic drugs; Z79.899 Other long term (current) drug therapy; Z87.891 Personal history of nicotine dependence
CPT/HCPCS: 47563; 74300; 76000; 82962; 88304; 93005; J7120; J2405

== ENCOUNTER → 2019-10-29 10:06 | Outpatient (CLI) | payer MEDICARE, MEDICAID, SELFPAY ==
[2019-02-18 09:42] VITALS: BMI 38.4
--- NOTE | 2019-10-29 10:12 | RAD_ITS ---
STUDY: X-RAY CHEST REASON FOR EXAM: Male, 59 years old. SOB AND CHEST TIGHTNESS. PATIENT STATES HAS HAD A TIA IN THE PAST. TECHNIQUE: PA and lateral views of the chest. COMPARISON: Prior study of 01/16/2019 FINDINGS: The lungs are clear and expanded. There is no demonstrated pleural abnormality. Normal size heart. Normal mediastinum and fausto. Normal visualized pulmonary arteries. Normal visualized aortic arch and descending thoracic aorta. There is demineralization of the osseous structures. Normal visualized ribs, clavicles, and shoulders. There is a tiny metallic foreign body in the soft tissues of the anterior left chest wall. There is a cervical fusion plate. RAD/Chest PA and Lateral IMPRESSION: Endplate spondylosis of the thoracic spine. No acute cardiopulmonary disease process is seen. Electronically Signed: Mau Fay MD at 17:43 EDT , Service support ,
[2019-10-29 12:35] LABS: Absolute Lymphocyte Count 2.87 X10^3/uL (0.83-4.51); Absolute Neutrophil Count 3.4 X10^3/uL (2.0-7.7); Basophil# 0.04 X10^3/uL; Basophil% 0.6 % (0-1); Eosinophil# 0.12 X10^3/uL; Eosinophils% 1.7 % (0-5); Hematocrit 42.7 % (40-54); Hemoglobin 14.5 g/dL (13.0-16.5); Lymphocyte # 2.87 X10^3/ul (4.0); Lymphocyte % 40.9 % (19-41); Mean Corpuscular Volume 94.3 fL (80-94); Mean Platelet Vol. 10.8 fl (6.2-12.0); Monocyte# 0.57 X10^3/uL; Monocyte% 8.1 % (0-10); NRBC Flagged by Analyzer 0 % (0-5); Neutrophil % 48.4 % (47-70); Platelet Count 203 K/mm3 (150-450); RBC Distribution Width CV 12.4 % (11.6-14.6); RBC Distribution Width SD 42.5 fl (35.1-43.9); Red Blood Count 4.53 M/mm3 (4.6-6.2)
[2019-10-29 12:43] LABS: Anion Gap 3 (5-15); BUN 12 mg/dL (7-18); BUN/Creat Ratio 10.4 RATIO (10-20); Calcium,Total 9.4 mg/dL (8.5-10.1); Chloride 105 mmol/L (98-107); Creatinine, Serum 1.15 mg/dL (0.70-1.30); EST Glomerular Filtration Rate 69 mL/min (>60); Est Glom Filt Rate - Afr Amer 83 mL/min (>60); Glucose 177 mg/dL (74-106); Potassium 4.1 mmol/L (3.5-5.1); Sodium Level 138 mmol/L (136-145)
[2019-10-29 13:16] LABS: BNP,B-Type NATRIURETIC PEPTIDE 6.2 pg/mL (0-100)
== END ==
PROVIDERS: PCP Family Medicine; Referring Provider Family Medicine; Visit Provider Family Medicine
DX: R07.9 Chest pain, unspecified (principal); R06.00 Dyspnea, unspecified
CPT/HCPCS: 36415; 71046; 80048; 83880; 85025

== ENCOUNTER → 2019-11-13 08:46 | Outpatient (CLI) | payer MEDICARE, MEDICAID, SELFPAY ==
[2019-02-18 09:42] VITALS: BMI 38.4
--- NOTE | 2019-11-13 08:48 | ECHOCS_ITS ---
Reason For Study: NANCE Procedure This was a 2D Doppler, Color Flow transthoracic echocardiogram. The study was technically difficult. Contrast injection was performed. Exam performed in department. Left Ventricle Normal LV size. Left ventricular systolic function is normal. The estimated ejection fraction is 60 %. Stage 1 diastolic dysfunction. No regional wall motion abnormalities noted. Right Ventricle Normal RV size. Normal systolic function. Atria Normal left atrium. Normal right atrium. Mitral Valve Normal mitral valve. Tricuspid Valve Normal tricuspid valve. Mild (1+) tricuspid valve insufficiency. Pulmonary artery systolic pressure is 30 mmHg. Aortic Valve Trisinus/trileaflet aortic valve. Pulmonic Valve Normal pulmonic valve. Great Vessels Mildly dilated aortic root. The pulmonary artery is normal size. Normal inferior vena cava. Pericardium/Pleural No pericardial effusion. Medication 22 gauge I.V. with prn adaptor inserted into right arm. Diluted definity 5.0ml given slow IV push to enhance endocardial definition. MMode/2D Measurements & Calculations LVIDd: 5.0 cm IVSd: 0.78 cm Ao root diam: 4.3 cm LVIDs: 4.1 cm LVPWd: 0.70 cm RVDd: 3.2 cm FS: 18.8 % LAV(MOD-bp): 31.2 ml LVAd ap4: 39.3 cm2 SV(MOD-sp4): 72.3 ml LAV(MOD-bp) Indexed: 13.2 ml/m2 EDV(MOD-sp4): 141.5 ml LAV(MOD-sp2): 42.9 ml EDV(sp4-el): 148.9 ml LAV(MOD-sp4): 21.5 ml LVAs ap4: 26.2 cm2 ESV(MOD-sp4): 69.2 ml ESV(sp4-el): 71.9 ml EF(MOD-sp4): 51.1 % EF(sp4-el): 51.7 % SV(sp4-el): 77.0 ml LA A4 area: 10.9 cm2 LA dimension(2D): 3.4 cm RA A4 area: 9.9 cm2 Time Measurements MV dec time: 0.16 sec Doppler Measurements & Calculations MV E max kel: 59.3 cm/sec Lat Peak E' Kel: 7.2 cm/sec Med Peak E' Kel: 4.8 cm/sec MV A max kel: 91.0 cm/sec E/E' lat: 8.3 E/E' med: 12.3 MV E/A: 0.65 Ao V2 max: 108.8 cm/sec LV V1 max: 96.7 cm/sec PA V2 max: 106.7 cm/sec Ao max P.7 mmHg LV V1 max P.7 mmHg PI end-d kel: 105.2 cm/sec TR max kel: 258.9 cm/sec TR max P.8 mmHg Interpretation Summary Normal LV size. Left ventricular systolic function is normal. The estimated ejection fraction is 60 %. Stage 1 diastolic dysfunction. Pulmonary artery systolic pressure is 30 mmHg. Contrast injection was performed. Ordering Physician: Bernardo Mckee Referring Physician: Bernardo Mckee Performed By: Ivonne Rosa RDCS, RVT
== END ==
PROVIDERS: PCP Family Medicine; Referring Provider Family Medicine; Visit Provider Family Medicine
DX: R07.9 Chest pain, unspecified (principal); R06.00 Dyspnea, unspecified
CPT/HCPCS: 93306; Q9957; A4216; C8929

== ENCOUNTER → 2019-12-22 06:56 | Outpatient (CLI) | payer MEDICARE, MEDICAID, SELFPAY ==
[2019-11-19 14:25] VITALS: BMI 38.7
[2019-12-22 08:19] LABS: Anion Gap 7 (5-15); BUN 17 mg/dL (7-18); BUN/Creat Ratio 14.2 RATIO (10-20); Calcium,Total 9.5 mg/dL (8.5-10.1); Chloride 97 mmol/L (98-107); EST Glomerular Filtration Rate 65 mL/min (>60); Est Glom Filt Rate - Afr Amer 79 mL/min (>60); Glucose 270 mg/dL (74-106); Potassium 3.7 mmol/L (3.5-5.1); Sodium Level 132 mmol/L (136-145)
== END ==
PROVIDERS: PCP Family Medicine; Referring Provider Internal Medicine Cardiovascular Disease; Visit Provider Internal Medicine Cardiovascular Disease
DX: R06.00 Dyspnea, unspecified (principal)
CPT/HCPCS: 36415; 80048

== ENCOUNTER → 2020-01-09 06:15 | Outpatient (CLI) | payer MEDICARE, MEDICAID, SELFPAY ==
[2019-12-24 08:31] VITALS: BMI 38.9
--- NOTE | 2020-01-09 16:58 | STRESSREP ---
Stress Test Report Exercise myocardial perfusion stress test. 59-year-old male with a history of hypertension and shortness of breath. Resting EKG demonstrates normal sinus rhythm with a rate of 97 bpm normal intervals are noted resting blood pressure is 158/90 mmHg. The patient exercised according to regular Montez protocol for a total duration of 5 minutes the maximum heart rate attained was 142 bpm which was 89% of maximum predicted heart rate the maximum workload was 7 metabolic equivalents. Patient maintained sinus rhythm throughout the recording. At rest there were no ST or T wave changes noted suggest ischemia at peak exercise upsloping ST changes only were noted with no meet the criteria for ischemia. No clinical angina was noted the test was terminated due to dyspnea. The peak blood pressure was 194/78 mmHg. Myocardial perfusion protocol. 14.6 mCi of technetium 99m sestamibi was injected at rest. The patient exercised according to regular Montez protocol at peak exercise 45.0 mCi of technetium 99m sestamibi was injected stress images were obtained stress and rest images were reconstructed and compared in the short axis vertical long horizontal long axis. Gated images were also obtained for Perfusion SPECT analysis: Review of the stress images demonstrate normal uptake of tracer noted in all areas of the myocardium the resting images similarly demonstrate normal uptake of tracer noted in all areas of the myocardium. No areas of reversibility are noted suggest ischemia no previous infarct is noted. Gated SPECT analysis: The gated ejection fraction is noted to be 64%. Conclusion: Normal exercise myocardial perfusion stress test at a moderate workload. No clinical angina noted. Hypertensive response to exercise.
== END ==
PROVIDERS: PCP Family Medicine; Referring Provider Physician Assistant Medical; Visit Provider Physician Assistant Medical
DX: R07.89 Other chest pain (principal); R06.09 Other forms of dyspnea
CPT/HCPCS: 78452; 93017; A9500; A4216

== ENCOUNTER → 2020-08-24 07:01 | Outpatient (CLI) | payer MEDICARE, MEDICAID, SELFPAY ==
[2019-12-24 08:31] VITALS: BMI 38.9
[2020-08-24 10:56] LABS: ALB/GLOB Ratio 1.1 RATIO (0.9-2.4); AST(SGOT) 29 U/L (15-37); Alanine Aminotransfer ALT/SGPT 55 U/L (16-61); Albumin, Serum 4.1 g/dL (3.2-5.0); Alkaline Phosphatase 116 U/L (45-117); Anion Gap 10 (5-15); BUN 16 mg/dL (7-18); BUN/Creat Ratio 12.6 RATIO (10-20); Calcium,Total 9.3 mg/dL (8.5-10.1); Chloride 97 mmol/L (98-107); Cholesterol 165 mg/dL (200); Creatinine, Serum 1.27 mg/dL (0.70-1.30); EST Glomerular Filtration Rate 61 mL/min (>60); Est Glom Filt Rate - Afr Amer 74 mL/min (>60); Globulin 3.6 g/dL (2.2-4.2); Glucose 279 mg/dL (74-106); High Density Lipoprotein 52 mg/dL; Potassium 3.8 mmol/L (3.5-5.1); Protein, Total 7.7 g/dL (6.4-8.2); Sodium Level 133 mmol/L (136-145); T4 Free Direct 1.14 ng/dL (0.76-1.46); Thyroid Stim Hormone (TSH) 1.86 uIU/mL (0.358-3.74); Triglycerides 305 mg/dL; Very Low Density Lipoprotein 61 mg/dL (5-40)
[2020-08-24 14:52] LABS: Absolute Lymphocyte Count 2.33 X10^3/uL (0.83-4.51); Absolute Neutrophil Count 4.9 X10^3/uL (2.0-7.7); Basophil# 0.06 X10^3/uL; Basophil% 0.7 % (0-1); Eosinophil# 0.14 X10^3/uL; Eosinophils% 1.7 % (0-5); Hematocrit 45.8 % (40-54); Lymphocyte # 2.33 X10^3/ul (0.83-4.51); Mean Corp Hgb Conc 34.9 g/dL (32-36); Mean Corpuscular Hgb 31.7 pg (27.0-32.0); Mean Corpuscular Volume 90.7 fL (80-94); Mean Platelet Vol. 11.4 fl (6.2-12.0); Monocyte# 0.61 X10^3/uL; Monocyte% 7.6 % (0-10); NRBC Flagged by Analyzer 0 % (0-5); Neutrophil # 4.86 X10^3/uL (2.7-7.7); Neutrophil % 60.6 % (47-70); Platelet Count 234 K/mm3 (150-450); RBC Distribution Width CV 12.2 % (11.6-14.6); RBC Distribution Width SD 39.9 fl (35.1-43.9); Red Blood Count 5.05 M/mm3 (4.6-6.2)
== END ==
PROVIDERS: PCP Family Medicine; Referring Provider Family Medicine; Visit Provider Family Medicine
DX: I10 Essential (primary) hypertension (principal); E11.65 Type 2 diabetes mellitus with hyperglycemia; E78.00 Pure hypercholesterolemia, unspecified
CPT/HCPCS: 36415; 80053; 80061; 84439; 84443; 85025

== ENCOUNTER → 2020-09-14 10:25 | Outpatient (CLI) | payer MEDICARE, MEDICAID, SELFPAY ==
[2020-09-14 08:16] VITALS: BMI 38.2
--- NOTE | 2020-09-14 10:27 | RAD_ITS ---
STUDY: X-RAY CHEST REASON FOR EXAM: Male, 60 years old. Shortness of breath. Hypertension. Precatheterization. TECHNIQUE: PA and lateral views of the chest. COMPARISON: 10/29/2019 FINDINGS: The lungs are clear and expanded. There is no demonstrated pleural abnormality. Normal size heart. Normal mediastinum and fausto. Normal visualized pulmonary arteries. Normal visualized aortic arch and descending thoracic aorta. There are diffuse degenerative changes of the visualized thoracic spine. And seen is anterior fusion lower cervical spine There is degenerative osteoarthritis of the bilateral shoulders. There is no demonstrated abnormality of the visualized soft tissue structures of the upper abdomen. RAD/Chest PA and Lateral IMPRESSION: Degenerative changes, as described above. No demonstrated acute cardiopulmonary process. There is no interval change. Electronically Signed: Chuy Wesley DO at 23:21 EDT Tel [phone], Service support ,
[2020-09-14 11:37] LABS: Absolute Lymphocyte Count 3.15 X10^3/uL (0.83-4.51); Absolute Neutrophil Count 4.8 X10^3/uL (2.0-7.7); Basophil# 0.05 X10^3/uL; Basophil% 0.6 % (0-1); Eosinophil# 0.15 X10^3/uL; Eosinophils% 1.7 % (0-5); Hematocrit 45.7 % (40-54); Hemoglobin 15.8 g/dL (13.0-16.5); Lymphocyte # 3.15 X10^3/ul (0.83-4.51); Lymphocyte % 35.4 % (19-41); Mean Corp Hgb Conc 34.6 g/dL (32-36); Mean Corpuscular Hgb 31.2 pg (27.0-32.0); Mean Corpuscular Volume 90.1 fL (80-94); Monocyte# 0.74 X10^3/uL; Monocyte% 8.3 % (0-10); NRBC Flagged by Analyzer 0 % (0-5); Neutrophil # 4.79 X10^3/uL (2.7-7.7); Neutrophil % 53.7 % (47-70); Platelet Count 239 K/mm3 (150-450); RBC Distribution Width CV 11.9 % (11.6-14.6); RBC Distribution Width SD 38.5 fl (35.1-43.9); Red Blood Count 5.07 M/mm3 (4.6-6.2); White Blood Count 8.9 K/mm3 (4.4-11.0)
[2020-09-14 11:53] LABS: Anion Gap 6 (5-15); BUN 18 mg/dL (7-18); BUN/Creat Ratio 13.7 RATIO (10-20); Calcium,Total 9.8 mg/dL (8.5-10.1); Chloride 98 mmol/L (98-107); Creatinine, Serum 1.31 mg/dL (0.70-1.30); EST Glomerular Filtration Rate 59 mL/min (>60); Est Glom Filt Rate - Afr Amer 71 mL/min (>60); Glucose 186 mg/dL (74-106); Potassium 3.7 mmol/L (3.5-5.1); Sodium Level 133 mmol/L (136-145)
== END ==
PROVIDERS: PCP Family Medicine; Referring Provider Internal Medicine Cardiovascular Disease; Visit Provider Internal Medicine Cardiovascular Disease
DX: R07.89 Other chest pain (principal); R06.00 Dyspnea, unspecified; I10 Essential (primary) hypertension; E78.5 Hyperlipidemia, unspecified
CPT/HCPCS: 36415; 71046; 80048; 85025

== ENCOUNTER 2020-09-20 06:56 | Day surgery (SDC) | payer MEDICARE, MEDICAID, SELFPAY ==
[2020-09-14 08:16] VITALS: BMI 38.2
[2020-09-17 07:56] VITALS: BMI 38.2
--- NOTE | 2020-09-20 08:26 | CL.D_ITS ---
Patient Name: WANDA MACHUCA Study Date: 09/20/2020 Performing: Sixto St MD Ht: 70.07 inches 178 cm : 1960 Wt: 266.76 lbs 121 kg Age: 60 Gender: male BSA: 2.36 PROCEDURE(S) PERFORMED [id number] CLINICAL PROFILE AND INDICATIONS Indications: Suspected CAD Heart Failure: None Stress/Imaging Stress/Image Study Performed: No CAD Presentations: Stable angina. CONCLUSIONS Normal coronary arteries Normal LV size, wall motion,and systolic function RECOMMENDATIONS Medical therapy DESCRIPTION OF PROCEDURE The patient arrived to the procedure lab. The risks and benefits of the procedure as well as a full d escription of our services here and current unavailability of surgical backup were fully explained to the patient and/or their significant other prior to the catheterization. The Timeout was completed, verifying the correct patient and procedure. The patient's procedural site was prepped and draped in the usual fashion. Local anesthetic was given subcutaneously to right radial region with Lidocaine 2% . Using a modified Seldinger technique, arterial access was obtained via the right radial artery, a 6 Fr sheath was inserted. Left Coronary Artery selective angiography was performed in multiple views u sing a 5 Fr. 4.0 [place] catheter. Right Coronary Artery selective angiography was then performed in mu ltiple views using a 5 Fr. 4.0 [place] catheter. Left Ventriculography was performed in PERES projection using a 5 Fr. Pigtail catheter. LV to AO pullback pressures were then recorded.The arterial sheath was pulled and a TR Band was applied for hemostasis. Sheath flushed prior to removal. 10cc air inserted. CORONARY ANGIOGRAPHY DOMINANCE: Co- Dominant LEFT HEART ASSESSMENT Left Ventricular Ejection Fraction: by LV Gram 60 % Normal LV wall motion Normal Left Ventricular systolic function Normal Left Ventricular systolic function LEFT MAIN: Angiographically normal LEFT ANTERIOR DESCENDING ARTERY: Angiographically normal CIRCUMFLEX ARTERY: Angiographically normal RIGHT CORONARY ARTERY: Angiographically normal COMPLICATIONS No Complications PROCEDURE MEDICATIONS Fentanyl 50 mcg IV Versed 1 mg IV Versed 1 mg IV Oxygen: 2 L/min via nasal cannula IV Bolus: .9 NaCl 200 ml total 09/20/2020 08:19:32 SUMMARY OF HEMODYNAMIC DATA Time AIR REST ECG 07:19:55 AO 86/65 (76) SA 08:07:36 LV 97/7, 15 08:13:17 LV 101/8, 13 08:13:23 LV 106/10, 14 08:14:12 LVp 103/7, 13 08:14:18 AOp 108/71 (87) 08:14:23 ECG 08:24:[address] MD On 09/20/2020 08:25:[address] MD
== END 2020-09-20 09:55 | disposition home or self-care (01) ==
LOC: CLSP 06:57
PROVIDERS: PCP Family Medicine; Referring Provider Internal Medicine Cardiovascular Disease; Visit Provider Internal Medicine Cardiovascular Disease
DX: I20.8 Other forms of angina pectoris (principal); I10 Essential (primary) hypertension; E78.5 Hyperlipidemia, unspecified; R06.09 Other forms of dyspnea; E11.9 Type 2 diabetes mellitus without complications; E03.9 Hypothyroidism, unspecified; E66.9 Obesity, unspecified; Z68.38 Body mass index [BMI] 38.0-38.9, adult; Z79.82 Long term (current) use of aspirin; Z79.84 Long term (current) use of oral hypoglycemic drugs; Z79.899 Other long term (current) drug therapy; Z86.73 Personal history of transient ischemic attack (TIA), and cerebral infarction without residual deficits; Z87.891 Personal history of nicotine dependence; Z82.49 Family history of ischemic heart disease and other diseases of the circulatory system
CPT/HCPCS: 93458; 99152; 99153; J7040; Q9967; C1769; C1894